=== PATIENT | female | born 1935 | race Caucasian/White ===

== ENCOUNTER → 2016-07-25 | Outpatient (CLI) | payer OTHER ==
[~2016-07-25] MED LIST: ADALAT CC30 MG; ALBU18 IN; CALC-255; DIAZ-104 OR; MULT-351; NOR5T PO
[2016-07-25 09:23] LABS: Urine RBC None Seen /hpf (0 - 4)
[2016-07-25 09:39] LABS: Basophils # (auto) 0 uL; Basophils % (auto) 0.4 % (0.0-2.0); Eosinophils # (auto) 0.1 uL; Eosinophils % (auto) 2.4 % (0.0-7.0); Hematocrit 44.1 % (36.0-46.0); Hemoglobin 13.7 g/dL (12.2-16.2); Lymphocytes # (auto) 1.9 uL; Lymphocytes % (auto) 37.4 % (10.0-50.0); Mean Corpuscular Hemoglobin 29.7 pg (28.0-32.0); Mean Corpuscular Hgb Conc. 31.2 g/dL (32.0-36.0); Mean Corpuscular Volume 95.3 fL (80.0-100.0); Mean Platelet Volume 11.2 fL (7.4-10.4); Monocytes # (auto) 0.4 uL; Monocytes % (auto) 8.4 % (0.0-12.0); Neutrophils # (auto) 2.6 uL; Neutrophils % (auto) 51.4 % (37.0-80.0); Platelet Count (auto) 168 10^3/uL (140-450); Red Cell Distribution Width 13.6 % (11.6-16.0); White Blood Cell 5.1 10^3/uL (4.4-10.8)
[2016-07-25 10:30] LABS: Urine Bilirubin Negative (Negative); Urine Blood Negative /uL (Negative); Urine Color Yellow (Yellow); Urine Glucose Normal (Normal); Urine Ketone Negative (Negative); Urine Nitrite Negative (Negative); Urine Squamous Epithelial Cell FEW /hpf (<5); Urine Urobilinogen Normal (Negative); Urine pH 5.5 (5.0-8.0)
[2016-07-25 10:35] LABS: Albumin 3.5 g/dL (3.4-5.0); BUN/Creatinine Ratio 31.8; Bilirubin, Total 0.4 mg/dL (0.2-1.0); Calcium 9.1 mg/dL (8.5-10.1); Potassium 4.4 mmol/L (3.5-5.1); Total Protein 7.1 g/dL (6.4-8.2)
== END | disposition home or self-care (01) ==
LOC: LAB 07:40
PROVIDERS: ATTEND Internal Medicine
DX: I10 Essential (primary) hypertension (principal); Z00.00 Encounter for general adult medical examination without abnormal findings; E55.9 Vitamin D deficiency, unspecified
CPT/HCPCS: 36415; 80053; 80061; 81001; 82306; 83036; 85025

== ENCOUNTER → 2016-08-15 | Outpatient (CLI) | payer OTHER | END | disposition home or self-care (01) | LOC: LAB 10:13 | PROVIDERS: ATTEND Internal Medicine | DX: Z79.01 Long term (current) use of anticoagulants (principal) | CPT/HCPCS: 82570; G0434 ==

== ENCOUNTER → 2016-10-27 | Outpatient (CLI) | payer OTHER | END | disposition home or self-care (01) | LOC: LAB 12:09 | PROVIDERS: ATTEND Anesthesiology Pain Medicine | DX: Z00.00 Encounter for general adult medical examination without abnormal findings (principal) ==

== ENCOUNTER → 2016-11-21 | Outpatient (CLI) | payer OTHER ==
[~2016-11-21] MED LIST changes: -ADALAT CC30 MG; +HYDR-4663 PO; +NIFE30TA87; -NOR5T PO
== END | disposition home or self-care (01) ==
LOC: LAB 12:34
PROVIDERS: ATTEND Anesthesiology Pain Medicine
DX: Z79.891 Long term (current) use of opiate analgesic (principal); F11.90 Opioid use, unspecified, uncomplicated
CPT/HCPCS: 80307

== ENCOUNTER 2017-03-25 08:07 | Emergency (ER) | payer OTHER ==
[~2017-03-25] VITALS: Ht 170.2 cm; Wt 63.5 kg
[~2017-03-25 08:07] MED LIST changes: -HYDR-4663 PO; +HYDR-4683 PO; +NIFE-16; -NIFE30TA87
[2017-03-25] MEDS ORDERED: SODIUM CHLORIDE 0.9% 1,000 ML IV ONE (08:42)
[2017-03-25] MEDS ORDERED: BACITRACIN TOP OINT 1 UD PKG TOP ONE (08:45)
[2017-03-25] MEDS ORDERED: MORPHINE SULF INJ 2 MG/ML SYRINGE 1ML IV ONE (09:15)
[2017-03-25] MEDS ORDERED: ONDANSETRON HCL 4 MG/2 ML VIAL IV ONE (09:15)
[2017-03-25 09:39] LABS: Basophils # (auto) 0 uL; Basophils % (auto) 0.5 % (0.0-2.0); Eosinophils # (auto) 0.1 uL; Eosinophils % (auto) 2.1 % (0.0-7.0); Hematocrit 40.1 % (36.0-46.0); Hemoglobin 13.5 g/dL (12.2-16.2); Lymphocytes # (auto) 1.2 uL; Lymphocytes % (auto) 18.4 % (10.0-50.0); Mean Corpuscular Hemoglobin 31.7 pg (28.0-32.0); Mean Corpuscular Hgb Conc. 33.7 g/dL (32.0-36.0); Mean Corpuscular Volume 94.3 fL (80.0-100.0); Mean Platelet Volume 9.7 fL (6.9-10.8); Monocytes # (auto) 0.4 uL; Monocytes % (auto) 6.7 % (0.0-12.0); Neutrophils # (auto) 4.8 uL; Neutrophils % (auto) 72.3 % (37.0-80.0); Platelet Count (auto) 197 10^3/uL (140-450); Red Cell Distribution Width 13.7 % (11.8-14.3); White Blood Cell 6.7 10^3/uL (4.4-10.8)
[2017-03-25 09:54] LABS: INR 1.03 (0.9-1.15); Partial Thromboplastin Time 29.8 sec (22.64-33.71); Prothrombin Time 11.2 sec (9.37-12.3)
[2017-03-25 09:58] LABS: BUN/Creatinine Ratio 24.2
[2017-03-25 10:00] LABS: Potassium 4.7 mmol/L (3.5-5.1)
[2017-03-25 11:27] VITALS: BP 126/64
== END 2017-03-25 12:34 | disposition home or self-care (01) ==
LOC: ER 08:07 → EDBD 08:07 → ER 12:34
DX: C76.0 Malignant neoplasm of head, face and neck (principal); R23.3 Spontaneous ecchymoses; I10 Essential (primary) hypertension; Z88.6 Allergy status to analgesic agent; Z88.1 Allergy status to other antibiotic agents; J44.9 Chronic obstructive pulmonary disease, unspecified; Z87.891 Personal history of nicotine dependence
CPT/HCPCS: 36415; 80048; 83735; 85025; 85610; 85730; 96361; 96374; 96375; 99285; J2270; J2405; J7030

== ENCOUNTER → 2017-08-09 | Outpatient (CLI) | payer OTHER ==
[2017-08-09 09:23] LABS: Basophils # (auto) 0 uL; Basophils % (auto) 0.6 % (0.0-2.0); Eosinophils # (auto) 0.1 uL; Eosinophils % (auto) 1.5 % (0.0-7.0); Hematocrit 42.1 % (36.0-46.0); Hemoglobin 14.2 g/dL (12.2-16.2); Lymphocytes # (auto) 1.5 uL; Lymphocytes % (auto) 29.1 % (10.0-50.0); Mean Corpuscular Hemoglobin 31.3 pg (28.0-32.0); Mean Corpuscular Hgb Conc. 33.7 g/dL (32.0-36.0); Mean Corpuscular Volume 92.9 fL (80.0-100.0); Monocytes # (auto) 0.3 uL; Monocytes % (auto) 6.7 % (0.0-12.0); Neutrophils # (auto) 3.2 uL; Neutrophils % (auto) 62.1 % (37.0-80.0); Platelet Count (auto) 209 10^3/uL (140-450); Red Blood Cells 4.53 10^6/uL (4.0-5.20); Red Cell Distribution Width 14.3 % (11.8-14.3); White Blood Cell 5.2 10^3/uL (4.4-10.8)
[2017-08-09 10:26] LABS: Albumin 3.5 g/dL (3.4-5.0); BUN/Creatinine Ratio 23.1; Bilirubin, Total 0.5 mg/dL (0.2-1.0); Calcium 9.3 mg/dL (8.5-10.1); Potassium 4.2 mmol/L (3.5-5.1); Total Protein 7.4 g/dL (6.4-8.2)
== END | disposition home or self-care (01) ==
LOC: LAB 08:44
PROVIDERS: ATTEND Physician Assistant
DX: I10 Essential (primary) hypertension (principal); J44.9 Chronic obstructive pulmonary disease, unspecified; G60.9 Hereditary and idiopathic neuropathy, unspecified; E78.4 Other hyperlipidemia
CPT/HCPCS: 36415; 80053; 80061; 85025

== ENCOUNTER 2018-09-20 06:13 | Day surgery (SDC) | payer OTHER ==
[2018-09-17 14:57] LABS: Urine WBC None Seen /hpf (0 - 5)
[2018-09-17 15:18] LABS: Basophils # (auto) 0.1 uL; Basophils % (auto) 1.5 % (0.0-2.0); Eosinophils # (auto) 0.6 uL; Eosinophils % (auto) 9.9 % (0.0-7.0); Hematocrit 41.4 % (36.0-46.0); Hemoglobin 13.6 g/dL (12.2-16.2); Lymphocytes # (auto) 1.6 uL; Lymphocytes % (auto) 28.3 % (10.0-50.0); Mean Corpuscular Hemoglobin 30.5 pg (28.0-32.0); Mean Corpuscular Hgb Conc. 32.8 g/dL (32.0-36.0); Mean Corpuscular Volume 92.7 fL (80.0-100.0); Monocytes # (auto) 0.6 uL; Monocytes % (auto) 10.7 % (0.0-12.0); Neutrophils # (auto) 2.9 uL; Neutrophils % (auto) 49.6 % (37.0-80.0); Nucleated Red Blood Cells % 0.1 %; Platelet Count (auto) 190 10^3/uL (140-450); Red Blood Cells 4.47 10^6/uL (4.0-5.20); Red Cell Distribution Width 14.7 % (11.8-14.3); White Blood Cell 5.8 10^3/uL (4.4-10.8)
[2018-09-17 15:23] LABS: Potassium 4.5 mmol/L (3.5-5.1)
[2018-09-17 15:30] LABS: Albumin 3.4 g/dL (3.4-5.0); BUN/Creatinine Ratio 19.4; Bilirubin, Total 0.3 mg/dL (0.2-1.0); Calcium 9.4 mg/dL (8.5-10.1); Total Protein 8.5 g/dL (6.4-8.2)
[2018-09-17 15:36] LABS: INR 0.96 (0.9-1.15); Partial Thromboplastin Time 24.7 sec (23.78-33.04); Prothrombin Time 10.3 sec (9.27-12.13); Urine Bacteria NONE SEEN /hpf (None Seen); Urine Blood Negative /uL (Negative); Urine Specific Gravity 1.008 (1.001-1.035)
[~2018-09-20] VITALS: Ht 170.2 cm; Wt 66.2 kg
[~2018-09-20 06:13] MED LIST changes: -ALBU18 IN; -CALC-255; +DIA5T PO; +GABA100C9 PO; -HYDR-4683 PO; +LISI-646 PO; -MULT-351; -NIFE-16
[2018-09-20] MEDS ORDERED: ceFAZolin 1GM/50ML 0 ML IV ONE (07:09)
[2018-09-20] MEDS ORDERED: CLINDAMYCIN 600MG IV 50 ML IV ONE (07:12)
[2018-09-20] MEDS ORDERED: fentaNYL CITRATE 100 MCG/2 ML VL ONE ×2 (07:23→08:51)
[2018-09-20] MEDS ORDERED: MIDAZOLAM HCL 1MG/1ML-2 ML VIAL ONE ×2 (07:23→08:52)
[2018-09-20] MEDS ORDERED: PROPOFOL 10 MG/ML 20 ML IV ONE (07:24)
[2018-09-20] MEDS ORDERED: SUCCINYLCHOLINE CHLORIDE 20 MG/ML 10ML VIAL IV ONE (07:25)
[2018-09-20] MEDS ORDERED: ePHEDrine SULFATE 50 MG/ML AMP IV PRN (08:45)
[2018-09-20] MEDS ORDERED: ONDANSETRON HCL 4 MG/2 ML VIAL IV ONE (08:45)
[2018-09-20] MEDS ORDERED: hydrALAZINE HCL 20 MG/ML VL IV PRN (08:45)
[2018-09-20] MEDS ORDERED: ANGIOMAX 250 MG VIAL IV ONE (08:51)
[2018-09-20] MEDS ORDERED: SODIUM CHL 0.9% 0 ML ONE (08:52)
[2018-09-20] MEDS ORDERED: fentaNYL CITRATE 100 MCG/2 ML VL IV ONE (09:00)
[2018-09-20 09:20] VITALS: BP 126/66
== END 2018-09-20 08:40 | disposition home or self-care (01) ==
LOC: SUR 06:13
PROVIDERS: ATTEND Anesthesiology Pain Medicine
DX: S32.010A Wedge compression fracture of first lumbar vertebra, initial encounter for closed fracture (principal); M54.5 Low back pain; J43.9 Emphysema, unspecified; I26.99 Other pulmonary embolism without acute cor pulmonale; F32.9 Major depressive disorder, single episode, unspecified; F41.9 Anxiety disorder, unspecified; J98.8 Other specified respiratory disorders; Z88.1 Allergy status to other antibiotic agents; Z88.8 Allergy status to other drugs, medicaments and biological substances; X58.XXXA Exposure to other specified factors, initial encounter; Y93.89 Activity, other specified; Y92.89 Other specified places as the place of occurrence of the external cause; Y99.8 Other external cause status
CPT/HCPCS: 22514; 36415; 72100; 76000; 80053; 81001; 85025; 85610; 85730; J0330; J2250; J2704; J3010; J3490; J7030; A4565; J0690

== ENCOUNTER → 2018-10-31 | Outpatient (CLI) | payer OTHER ==
[2018-10-31 09:48] LABS: Basophils # (auto) 0 uL; Basophils % (auto) 0.4 % (0.0-2.0); Eosinophils # (auto) 0.1 uL; Eosinophils % (auto) 2.6 % (0.0-7.0); Hematocrit 41.7 % (36.0-46.0); Lymphocytes # (auto) 1.3 uL; Lymphocytes % (auto) 26.2 % (10.0-50.0); Mean Corpuscular Hemoglobin 30.7 pg (28.0-32.0); Mean Corpuscular Hgb Conc. 33.6 g/dL (32.0-36.0); Mean Corpuscular Volume 91.5 fL (80.0-100.0); Monocytes # (auto) 0.3 uL; Neutrophils # (auto) 3.3 uL; Neutrophils % (auto) 64.8 % (37.0-80.0); Nucleated Red Blood Cells % 0.1 %; Platelet Count (auto) 184 10^3/uL (140-450); Red Blood Cells 4.56 10^6/uL (4.0-5.20); Red Cell Distribution Width 14.3 % (11.8-14.3); White Blood Cell 5.1 10^3/uL (4.4-10.8)
[2018-10-31 09:53] LABS: Urine Bacteria NONE SEEN /hpf (None Seen); Urine Blood Negative /uL (Negative); Urine Specific Gravity 1.016 (1.001-1.035); Urine WBC <1 /hpf (0 - 5)
[2018-10-31 10:15] LABS: Albumin 3.4 g/dL (3.4-5.0); Potassium 4.6 mmol/L (3.5-5.1)
[2018-10-31 10:23] LABS: BUN/Creatinine Ratio 27.2; Bilirubin, Total 0.5 mg/dL (0.2-1.0); Calcium 9.4 mg/dL (8.5-10.1); Total Protein 7.8 g/dL (6.4-8.2)
== END | disposition home or self-care (01) ==
LOC: LAB 09:09
PROVIDERS: ATTEND Physician Assistant
DX: J44.9 Chronic obstructive pulmonary disease, unspecified (principal); I10 Essential (primary) hypertension; I73.9 Peripheral vascular disease, unspecified; E78.49 Other hyperlipidemia; R81 Glycosuria
CPT/HCPCS: 36415; 80053; 80061; 81001; 83036; 85025

== ENCOUNTER → 2019-06-03 | Emergency (ER) | payer OTHER ==
[~2019-06-03] VITALS: Ht 170.2 cm; Wt 68.5 kg
[~2019-06-03] MED LIST changes: -DIAZ-104 OR; +DIAZ5TAB OR
[2019-06-03 15:28] LABS: Basophils # (auto) 0 uL; Basophils % (auto) 0.4 % (0.0-2.0); Eosinophils # (auto) 0.1 uL; Eosinophils % (auto) 2.1 % (0.0-7.0); Hematocrit 40.2 % (36.0-46.0); Hemoglobin 13.6 g/dL (12.2-16.2); Lymphocytes # (auto) 1.8 uL; Lymphocytes % (auto) 27.7 % (10.0-50.0); Mean Corpuscular Hemoglobin 31.3 pg (28.0-32.0); Mean Corpuscular Hgb Conc. 33.9 g/dL (32.0-36.0); Mean Corpuscular Volume 92.3 fL (80.0-100.0); Monocytes # (auto) 0.4 uL; Monocytes % (auto) 6.8 % (0.0-12.0); Neutrophils # (auto) 4.1 uL; Nucleated Red Blood Cells % 0.1 %; Platelet Count (auto) 184 10^3/uL (140-450); Red Blood Cells 4.35 10^6/uL (4.0-5.20); Red Cell Distribution Width 13.5 % (11.8-14.3); White Blood Cell 6.4 10^3/uL (4.4-10.8)
[2019-06-03 15:50] LABS: INR 1.06 (0.9-1.15); Partial Thromboplastin Time 31.6 sec (23.64-32.05)
[2019-06-03 16:50] LABS: Albumin 3.5 g/dL (3.4-5.0); Calcium 9.5 mg/dL (8.5-10.1); Magnesium 2.2 mg/dL (1.6-2.6); Potassium 4.6 mmol/L (3.5-5.1)
[2019-06-03 16:55] LABS: BUN/Creatinine Ratio 33.8; Bilirubin, Total 0.5 mg/dL (0.2-1.0); Total Protein 7.6 g/dL (6.4-8.2)
[2019-06-03 17:06] VITALS: BP 122/68
== END | disposition home or self-care (01) ==
LOC: ER 12:51
DX: L03.115 Cellulitis of right lower limb (principal); R60.0 Localized edema; Z88.2 Allergy status to sulfonamides; Z88.8 Allergy status to other drugs, medicaments and biological substances
CPT/HCPCS: 36415; 73630; 80053; 81002; 83735; 83880; 85025; 85610; 85730; 87040; 93005; 93971

== ENCOUNTER 2019-08-14 17:02 | Inpatient (IN) | payer OTHER ==
[~2019-08-14] VITALS: Ht 170.2 cm; Wt 73.6 kg
[2019-08-14 20:30] LABS: Basophils # (auto) 0.1 10 ^3/uL (0-0.2); Basophils % (auto) 0.9 % (0.0-2.0); Eosinophils # (auto) 0.1 10 ^3/uL (0-0.8); Eosinophils % (auto) 1.8 % (0.0-7.0); Hematocrit 39.8 % (36.0-46.0); Mean Corpuscular Hgb Conc. 32.6 g/dL (32.0-36.0); Mean Corpuscular Volume 91.9 fL (80.0-100.0); Monocytes # (auto) 0.6 10 ^3/uL (0-1.3); Monocytes % (auto) 7.4 % (0.0-12.0); Neutrophils # (auto) 5.4 10 ^3/uL (1.6-8.6); Neutrophils % (auto) 65.9 % (37.0-80.0); Platelet Count (auto) 248 10^3/uL (140-450); Red Blood Cells 4.33 10^6/uL (4.0-5.20); Red Cell Distribution Width 13.8 % (11.8-14.3); White Blood Cell 8.2 10^3/uL (4.4-10.8)
[2019-08-14 20:48] LABS: INR 1.07 (0.9-1.15); Partial Thromboplastin Time 33.1 sec (23.64-32.05)
[2019-08-14 21:05] LABS: Albumin 3.2 g/dL (3.4-5.0); Calcium 9.2 mg/dL (8.5-10.1); Potassium 4.9 mmol/L (3.5-5.1)
[2019-08-14 21:08] LABS: Bilirubin, Total 0.3 mg/dL (0.2-1.0); Total Protein 7.8 g/dL (6.4-8.2)
[2019-08-14] MEDS ORDERED: CLINDAMYCIN 600MG IV 50 ML IV ONE (22:00)
[2019-08-15] MEDS ORDERED: ACETAMINOPHEN 325 MG TAB PO PRN (00:30)
[2019-08-15 00:36] LABS: Urine Bacteria FEW /hpf (None Seen); Urine Blood Negative /uL (Negative); Urine WBC 14 /hpf (0 - 5)
[2019-08-15] MEDS ORDERED: HYDROcodone-ACET 10/325MG TAB PO ONE (00:45)
[2019-08-15] MEDS: HYDROcodone-ACET 5/325MG TAB PO PRN ×2 (04:17→10:41)
[2019-08-15 05:30] VITALS: BP 117/61
[2019-08-15 05:38] VITALS: BP 117/61
[2019-08-15] MEDS: CLINDAMYCIN 600MG IV 50 ML IV SCH ×3 (07:04→21:53)
--- NOTE | 2019-08-15 07:35 | NUR ---
Opening Shift Note Assumed care of patient, awake and alert. No S/S of distress/SOB or pain. Instructed on POC and to call for assist PRN, will continue to monitor for changes Q1hr and PRN.
--- NOTE | 2019-08-15 07:40 | NUR ---
Rweport given to velvet
[2019-08-15 09:11] VITALS: BP 99/57
[2019-08-15] MEDS: FAMOTIDINE 20 MG TAB PO SCH ×2 (10:00→21:53)
[2019-08-15] MEDS: FUROSEMIDE 40 MG TAB PO SCH (10:39)
[2019-08-15] MEDS: levoFLOXacin 500MG 100 ML IV SCH (10:39)
[2019-08-15] MEDS: LISINOPRIL 20 MG TAB PO SCH (10:40)
[2019-08-15] MEDS: ENOXAPARIN SOD 40 MG/0.4 ML SYRINGE SC SCH (10:40)
[2019-08-15 11:16] LABS: Basophils # (auto) 0 10 ^3/uL (0-0.2); Basophils % (auto) 0.6 % (0.0-2.0); Eosinophils # (auto) 0.2 10 ^3/uL (0-0.8); Eosinophils % (auto) 3.9 % (0.0-7.0); Hematocrit 36.2 % (36.0-46.0); Hemoglobin 12.1 g/dL (12.2-16.2); Lymphocytes # (auto) 1.3 10 ^3/uL (0.4-5.4); Lymphocytes % (auto) 28.7 % (10.0-50.0); Mean Corpuscular Hemoglobin 30.6 pg (28.0-32.0); Mean Corpuscular Hgb Conc. 33.3 g/dL (32.0-36.0); Mean Corpuscular Volume 91.7 fL (80.0-100.0); Monocytes # (auto) 0.5 10 ^3/uL (0-1.3); Monocytes % (auto) 9.9 % (0.0-12.0); Neutrophils # (auto) 2.6 10 ^3/uL (1.6-8.6); Neutrophils % (auto) 56.9 % (37.0-80.0); Platelet Count (auto) 214 10^3/uL (140-450); Red Blood Cells 3.95 10^6/uL (4.0-5.20); Red Cell Distribution Width 14.2 % (11.8-14.3); White Blood Cell 4.6 10^3/uL (4.4-10.8)
[2019-08-15 11:29] LABS: Albumin 2.7 g/dL (3.4-5.0); Magnesium 2.7 mg/dL (1.6-2.6); Potassium 4.8 mmol/L (3.5-5.1)
[2019-08-15 11:33] LABS: Bilirubin, Total 0.3 mg/dL (0.2-1.0); Total Protein 6.6 g/dL (6.4-8.2)
[2019-08-15 11:39] LABS: Folate (Folic Acid) 19.59 ng/mL (5.38-24)
--- NOTE | 2019-08-15 12:36 | NUR ---
WOUND CARE NOTE: Wound care in to see patient per wound care request regarding "Rt foot ulcer" that are noted present on admission. Bedside nurse took photograph of patient's wound/skin issue upon admission for reference. Patient is 84 years old female with admitting diagnosis of Rt Leg Cellulitis. Patient with history of Anxiety, COPD,Depression, GERD, htn,and PE. Patient is resting in bed in Rm. 249A. Patient is awake, alert and oriented. Patient is in no stated pain at this time. She's able to turn and reposition self with minimal assistance. Her Wilfredo score is 15. Skin/wound assessment done with the assistance of patient's nurse, JACKELINE Littlejohn. Patient's RLE noted with edema,erythema, intact scabs, crusts with dry skin. She will benefit in BID cleaning and application of Hydraguard cream to RLE dry skin to help moisturize skin. Her Rt heel has 4x6cm yellow calloused area with 1.8x1.2x0.3 cm open ulceration. Wound bed is red with yellow hyperkeratotic tika wound, minimal serous drainage noted, no odor noted. Patient reported that she has had the yellow hyperkeratotic area to Rt heel and just opened up and noted ulceration about few days ago. Cleansed patient's Rt heel wound with NS, took specimen for wound culture and sent to lab for processing. Applied Thera honey gel to open wound bed area, covered with Opti foam, wrapped with Kerlix and secured with tape. No pressure injury noted. Patient tolerated well, repositioned for comfort on her back with head of bed elevated. JACKELINE Littlejohn at bedside. RECOMMENDATION: Nursing to continue with BID/PRN cleaning and application of Hydraguard cream to RLE dry skin and sacral,buttocks; EOD/PRN Dressing change to Rt heel wound per MD order, Dietary consult for wound,Podiatry consult, elevate edematous extremity on pillow,frequent turning and repositioning schedule as condition permits, redistribute pressure points with pillows, continue monitoring by wound care while patient is hospitalized. Addendum: 08/15/19 at 1737 by Pamela Cortez RN Amended: Links added.
[2019-08-15] MEDS ORDERED: FURO1TAB32 PO (12:44)
[2019-08-15] MEDS ORDERED: PREG100C PO (12:44)
[2019-08-15 13:00] VITALS: BP 105/59
[2019-08-15 16:25] VITALS: BP 96/56
--- NOTE | 2019-08-15 19:50 | NUR ---
Opening Shift Note Assumed care of patient, awake and alert. No S/S of distress/SOB or pain. Instructed on POC and to call for assist PRN. Bed in lowest locked position, call light within reach, side rails up x2, fall precautions in place. Will continue to monitor for changes Q1hr and PRN.
[2019-08-15] MEDS: ONDANSETRON HCL 4 MG/2 ML VIAL IV PRN (21:52)
[2019-08-15 22:29] VITALS: BP 105/54
[2019-08-15] MEDS: TEMAZEPAM 15 MG CAP PO PRN (23:25)
[2019-08-16 05:30] VITALS: BP 123/61
[2019-08-16] MEDS: CLINDAMYCIN 600MG IV 50 ML IV SCH ×3 (06:06→21:59)
[2019-08-16 06:42] LABS: Basophils # (auto) 0 10 ^3/uL (0-0.2); Basophils % (auto) 0.5 % (0.0-2.0); Eosinophils # (auto) 0.2 10 ^3/uL (0-0.8); Eosinophils % (auto) 2.8 % (0.0-7.0); Hemoglobin 12.8 g/dL (12.2-16.2); Lymphocytes # (auto) 1.1 10 ^3/uL (0.4-5.4); Lymphocytes % (auto) 18.6 % (10.0-50.0); Mean Corpuscular Hgb Conc. 33.8 g/dL (32.0-36.0); Mean Corpuscular Volume 91.6 fL (80.0-100.0); Monocytes # (auto) 0.4 10 ^3/uL (0-1.3); Monocytes % (auto) 6.8 % (0.0-12.0); Neutrophils # (auto) 4.2 10 ^3/uL (1.6-8.6); Neutrophils % (auto) 71.3 % (37.0-80.0); Nucleated Red Blood Cells % 0.1 %; Platelet Count (auto) 236 10^3/uL (140-450); Red Blood Cells 4.14 10^6/uL (4.0-5.20); Red Cell Distribution Width 13.8 % (11.8-14.3); White Blood Cell 5.8 10^3/uL (4.4-10.8)
[2019-08-16 07:03] LABS: Potassium 4.6 mmol/L (3.5-5.1)
[2019-08-16 07:09] LABS: BUN/Creatinine Ratio 27.2
--- NOTE | 2019-08-16 07:29 | NUR ---
Opening Shift Note Assumed care of patient, awake and alert. No S/S of distress/SOB or pain. Dressing to rt foot cdi. Instructed on POC and to call for assist PRN, will continue to monitor for changes Q1hr and PRN.
[2019-08-16 09:00] VITALS: BP 122/58
[2019-08-16] MEDS: levoFLOXacin 500MG 100 ML IV SCH (09:58)
[2019-08-16] MEDS: FLORASTOR (S. BOULARDII) 250 MG CAP PO SCH (09:59)
[2019-08-16] MEDS: FUROSEMIDE 40 MG TAB PO SCH (09:59)
[2019-08-16] MEDS: FAMOTIDINE 20 MG TAB PO SCH ×2 (09:59→21:59)
[2019-08-16] MEDS: LISINOPRIL 20 MG TAB PO SCH (10:00)
[2019-08-16] MEDS: ENOXAPARIN SOD 40 MG/0.4 ML SYRINGE SC SCH (10:00)
--- NOTE | 2019-08-16 11:41 | NUR ---
assessment Patient is a 84 year old female who is alert and oriented. Prior to admission patient lived home with family and functioned with assistance. Per patient she will return home to her prior living arrangements post discharge and family will transport her home. Patient informed me she has a fww for home use. Patient uses [facility] for her PCP. Patient informed me she was getting out of a taxi van and hit her leg. Patient has an open wound on her leg. Patient may need home health wound care on discharge. I informed patient she has a right to speak to a social and political studies professor regarding all care. I informed patient she has a right to participate in any and all discharge planning. Patient does not have a POA and advanced directive. I have offered patient information on POA and advanced directives. I informed the patient the advantages and benefits of having an Advanced Directive. Patient verbalized understanding and agreed to discharge plan. Addendum: 08/16/19 at 1147 by Arabella ARREOLA Amended: Links added. Addendum: 08/16/19 at 1157 by Arabella ARREOLA amend wrong patient info regarding hitting leg on taxi door. Patient does have an open wound and may need wound care on discharge.
[2019-08-16 13:00] VITALS: BP 107/61
[2019-08-16] MEDS: HYDROcodone-ACET 5/325MG TAB PO PRN ×2 (13:30→22:00)
--- NOTE | 2019-08-16 14:48 | NUR ---
NUTRITION ASSESSMENT NOTES Please refer to link notes of nutrition screen form filed under the intervention section of the plan of care for further details. Est. Energy Needs: 2123-1767 kcal (25-30 kcal/kg BW). Est. Protein Needs: 89-112 gms/day (1.2-1.5 gms/kg BW). Will continue to monitor pertinent labs and reassess nutrient need prn Addendum: 08/16/19 at [address] Amended: Links added.
[2019-08-16 17:00] VITALS: BP 90/54
--- NOTE | 2019-08-16 19:30 | NUR ---
Opening Shift Note Assumed care of patient, awake and alert. No S/S of distress/SOB or pain. Instructed on POC and to call for assist PRN. BED IN LOWEST LOCKED POSITION, CALL LIGHT WITHIN REACH, SIDE RAILS UP X2, will continue to monitor for changes Q1hr and PRN.
[2019-08-16 23:03] VITALS: BP 96/46
--- NOTE | 2019-08-16 23:10 | NUR ---
IV insertion IV access obtained, via clean sterile technique by inserting 20 gauge catheter at RT HAND after 1 attempt. IV secured properly. No trauma to site. Patient tolerated procedure well. PREVIOUS IV DC'D, CATHETER INTACT, PRESSURE DRESSING APPLIED, PT TOLERATED WELL.
[2019-08-17] MEDS: TEMAZEPAM 15 MG CAP PO PRN (00:32)
--- NOTE | 2019-08-17 04:17 | NUR ---
RECEIVED REPORT. ASSUMED CARE OF PATIENT.
[2019-08-17 05:30] VITALS: BP 120/64
[2019-08-17] MEDS: CLINDAMYCIN 600MG IV 50 ML IV SCH ×3 (05:30→21:37)
[2019-08-17] MEDS: ONDANSETRON HCL 4 MG/2 ML VIAL IV PRN (05:37)
[2019-08-17 09:28] VITALS: BP 102/58
[2019-08-17] MEDS: FLORASTOR (S. BOULARDII) 250 MG CAP PO SCH (09:51)
[2019-08-17] MEDS: FUROSEMIDE 40 MG TAB PO SCH (09:51)
[2019-08-17] MEDS: LISINOPRIL 20 MG TAB PO SCH (09:52)
[2019-08-17] MEDS: FAMOTIDINE 20 MG TAB PO SCH ×2 (09:53→21:38)
[2019-08-17] MEDS: levoFLOXacin 500MG 100 ML IV SCH (09:54)
[2019-08-17] MEDS: ENOXAPARIN SOD 40 MG/0.4 ML SYRINGE SC SCH (09:55)
[2019-08-17 13:28] VITALS: BP 108/59
[2019-08-17] MEDS: SENNA 8.6 MG TAB PO SCH ×2 (15:01→21:38)
--- NOTE | 2019-08-17 15:09 | NUR ---
ASSUMED CARE OF PATIENT. PT RESTING IN BED, NO DISTRESS NOTED. PATIENT INSTRUCTED TO USE CALL LIGHT PRN, RIGHT FOOT WRAPPED IN ROMAN BANDAGE AND ELEVATED ON PILLOW. CAP REFILL IN BILATERAL FEET LESS THAN 3 SECONDS. PT REPORTS NO PAIN AT THIS TIME, WILL CONTINUE TO MONITOR.
[2019-08-17 17:00] VITALS: BP 99/47
--- NOTE | 2019-08-17 17:12 | NUR ---
CHEST PAIN PT REPORTS PAIN 5/10 IN SHOULDER, "LIKE A CRAMP," RADIATING TO CHEST WITH, "A LITTLE PRESSURE." PT REPORTS SHE IS A LITTLE SOB. VITALS TAKEN: BP 132/75, HR 68, 02 88% ON RA, PT REPORTS SHE HAS COPD, RR 18, T 99.2. SHE REPORTS, "IT MAY JUST BE GAS." EKG DONE, READS SR 70 BPM. CALLED AND LEFT MESSAGE FOR DR BERNARD, NOTIFYNErik ROTH OF CHEST PAIN, VITALS AND EKG RESULTS. AWAITING CALL BACK.
--- NOTE | 2019-08-17 17:24 | NUR ---
CALLED ADMITTING IN E.R., GOT PATIENT NEW ID BAND, PT PLACED ON 2L NC. WILL CONTINUE TO MONITOR. PT RESTING IN BED WATCHING TV. Addendum: 08/17/19 at 1744 by ISMAEL BROOKS RN PT 02 97% ON 2L NC.
--- NOTE | 2019-08-17 17:28 | NUR ---
DR BERNARD CALLED BACK, NEW ORDERS FOR STAT TROPONIN AND AGAIN IN FOUR HOURS.
--- NOTE | 2019-08-17 19:45 | NUR ---
Opening Shift Note Assumed care of patient, awake and alert. No S/S of distress/SOB or pain. Fall and safety precautions in place. Call light within reach and able to use. Instructed on POC and to call for assist PRN, patient verbalized understanding and in agreement. Will continue to monitor for changes Q1hr and PRN.
[2019-08-17] MEDS: PREGABALIN 25 MG CAP PO SCH (21:38)
[2019-08-17] MEDS: PREGABALIN CAPSULE 75 MG CAP PO SCH (21:38)
[2019-08-17] MEDS: HYDROcodone-ACET 5/325MG TAB PO PRN (21:39)
--- NOTE | 2019-08-17 21:39 | NUR ---
PAIN ASSESSMENT PATIENT REPORTS 10/10 PAIN TO LEFT SHOULDER, DESCRIBED ACHING AND WORSE WITH MOVEMENT. MD IS AWARE OF PAIN. PATIENT SPECIFICALLY REQUESTS NORCO FOR PAIN (SEE EMAR FOR ADMINISTRATION). PATIENT REPOSITIONED FOR COMFORT. WILL CONTINUE TO MONITOR.
[2019-08-17 22:00] VITALS: BP 104/61
--- NOTE | 2019-08-17 22:39 | NUR ---
PAIN REASSESSMENT PATIENT STATES SHE IS NO LONGER IN PAIN, RATING 0/10 USING ADULT SCALE. WILL CONTINUE TO MONITOR.
[2019-08-18] VITALS (7 sets, daily range): BP systolic 107–129; BP diastolic 46–70
[2019-08-18] MEDS: diazePAM 5 MG TAB PO PRN (00:22)
--- NOTE | 2019-08-18 00:22 | NUR ---
PRN VALIUM PATIENT REQUESTS PRN VALIUM TO HELP HER "GET SOME REST". SEE EMAR FOR ADMINISTRATION AT THIS TIME. WILL CONTINUE TO MONITOR.
--- NOTE | 2019-08-18 03:39 | NUR ---
PRN TYLENOL PATIENT SPECIFICALLY REQUESTS TYLENOL FOR HEADACHE PAIN 7/10 USING ADULT SCALE. SEE EMAR FOR ADMINISTRATION. WILL CONTINUE TO MONITOR.
[2019-08-18] MEDS: CLINDAMYCIN 600MG IV 50 ML IV SCH ×3 (05:32→22:28)
[2019-08-18 06:58] LABS: Albumin 2.5 g/dL (3.4-5.0); BUN/Creatinine Ratio 26.2; Calcium 8.5 mg/dL (8.5-10.1); Magnesium 2.1 mg/dL (1.6-2.6)
[2019-08-18 07:00] LABS: Bilirubin, Total 0.3 mg/dL (0.2-1.0); Total Protein 6.4 g/dL (6.4-8.2)
[2019-08-18] MEDS ORDERED: POLYETHYLENE GLYCOL 17 GM PWDR PO ONE ×2 (10:15)
[2019-08-18] MEDS: levoFLOXacin 500MG 100 ML IV SCH (11:23)
[2019-08-18] MEDS: FLORASTOR (S. BOULARDII) 250 MG CAP PO SCH (11:23)
[2019-08-18] MEDS: PREGABALIN CAPSULE 75 MG CAP PO SCH ×2 (11:24→22:28)
[2019-08-18] MEDS: PREGABALIN 25 MG CAP PO SCH ×2 (11:24→22:28)
[2019-08-18] MEDS: ENOXAPARIN SOD 40 MG/0.4 ML SYRINGE SC SCH (11:25)
[2019-08-18] MEDS: SENNA 8.6 MG TAB PO SCH ×2 (11:25→22:35)
[2019-08-18] MEDS: FAMOTIDINE 20 MG TAB PO SCH ×2 (11:25→22:28)
--- NOTE | 2019-08-18 19:50 | NUR ---
Opening Shift Note Assumed care of patient, awake and alert. No S/S of distress/SOB. Instructed on POC and to call for assist PRN, patient verbalized understanding and in agreement. Fall and safety precautions in place. Call light within reach and able to use. Will continue to monitor for changes Q1hr and PRN.
--- NOTE | 2019-08-18 21:00 | NUR ---
dressing change completed, patient tolerated well. will continue to monitor.
--- NOTE | 2019-08-18 22:00 | NUR ---
Patient states that she does not want to take any prn medication for pain. Patient repositioned for comfort and offered alternative options for pain relief. Patient repositioned in bed and pillows repositioned under head. Patient verbalized understanding and is aware of medication and options for pain relief and stated she will call if she needs anything for pain. Will continue to monitor.
[2019-08-19] MEDS: diazePAM 5 MG TAB PO PRN (00:36)
--- NOTE | 2019-08-19 00:36 | NUR ---
Patient requests prn Patient requests valium (see emar for administration). Risks/side effects discussed. Patient verbalized understanding and in agreement. Will continue to monitor.
[2019-08-19 05:00] VITALS: BP 118/60
[2019-08-19] MEDS: CLINDAMYCIN 600MG IV 50 ML IV SCH ×3 (05:48→23:02)
[2019-08-19 06:41] LABS: Potassium 4.7 mmol/L (3.5-5.1)
[2019-08-19 06:45] LABS: BUN/Creatinine Ratio 29.8; Magnesium 2.2 mg/dL (1.6-2.6)
[2019-08-19 08:00] VITALS: BP 105/62
[2019-08-19 09:00] VITALS: BP 105/62
[2019-08-19] MEDS: PREGABALIN CAPSULE 75 MG CAP PO SCH ×2 (10:25→23:01)
[2019-08-19] MEDS: PREGABALIN 25 MG CAP PO SCH ×2 (10:26→23:01)
[2019-08-19] MEDS: SENNA 8.6 MG TAB PO SCH ×2 (10:27→23:02)
[2019-08-19] MEDS: FAMOTIDINE 20 MG TAB PO SCH ×2 (10:28→23:01)
[2019-08-19] MEDS: FLORASTOR (S. BOULARDII) 250 MG CAP PO SCH (10:28)
[2019-08-19] MEDS: levoFLOXacin 500MG 100 ML IV SCH (10:29)
[2019-08-19] MEDS: ENOXAPARIN SOD 40 MG/0.4 ML SYRINGE SC SCH (10:29)
[2019-08-19 13:00] VITALS: BP 111/64
--- NOTE | 2019-08-19 14:59 | NUR ---
SS consult for home health for wound care therapy. Contacted [facility] contracted provider, and faxed clinical information including tracking number. Informed Saira that pt would be discharged on tomorrow and home health would need to f/u post discharge. Contacted [facility] managed care department and notified of referral for home health. No other discharge needs. Addendum: 08/19/19 at 1513 by RAY JAMES SS Amended: Links added.
[2019-08-19 17:00] VITALS: BP 100/59
--- NOTE | 2019-08-19 19:30 | NUR ---
Opening Shift Note Assumed care of patient, awake and alert x4. Patient denies pain or shortness of breath at this time. Instructed on plan of care and to call for assistance as needed, patient verbalized understanding. Bed is locked in lowest position, side rails x 2 are up, call light is within reach, and bed alarm is on.
[2019-08-19 22:00] VITALS: BP 117/69
[2019-08-20] MEDS: diazePAM 5 MG TAB PO PRN (00:34)
[2019-08-20 05:00] VITALS: BP 123/79
--- NOTE | 2019-08-20 05:00 | NUR ---
Wound Care Right heel cleansed with wound cleanser, patted dry, therahoney and optifoam applied to right heel. Right heel wrapped with kerlix. Right leg cleansed with wound cleanser, patted dry with clean gauze, and hydrogaurd was applied to right leg. Wound care performed to right heel/leg as ordered by MD and recommended by wound care nurse. Patient tolerated well. No signs/symptoms of distress noted at this time. Patient is laying in bed with even and unlabored respirations. Bed is locked in lowest position, side rails x 2 are up, call light is within reach.
--- NOTE | 2019-08-20 05:34 | NUR ---
Patient Refusing IV Insertion Patient refusing IV insertion. IV noted to be leaking. This RN educated the patient on the importance of having a patent IV. Patient states she was told she might be going home today and does not want to be poked again. This RN reinforced IV with new tegaderm. Patient tolerated well.
[2019-08-20] MEDS: CLINDAMYCIN 600MG IV 50 ML IV SCH ×2 (06:03→14:48)
--- NOTE | 2019-08-20 07:20 | NUR ---
Opening Shift Note Assumed care of patient, awake and alert x4. no s/s distress or SOB noted, denies pain at this time. Instructed on plan of care and to call for assistance as needed, patient verbalized understanding. Bed is locked in lowest position, side rails x 2 are up, call light is within reach, and bed alarm is on.
[2019-08-20 09:00] VITALS: BP 108/69
[2019-08-20] MEDS: PREGABALIN 25 MG CAP PO SCH (10:45)
[2019-08-20] MEDS: FLORASTOR (S. BOULARDII) 250 MG CAP PO SCH (10:46)
[2019-08-20] MEDS: PREGABALIN CAPSULE 75 MG CAP PO SCH (10:46)
[2019-08-20] MEDS: levoFLOXacin 500MG 100 ML IV SCH (10:47)
[2019-08-20] MEDS: FAMOTIDINE 20 MG TAB PO SCH (10:47)
[2019-08-20] MEDS: ENOXAPARIN SOD 40 MG/0.4 ML SYRINGE SC SCH (10:47)
[2019-08-20] MEDS: SENNA 8.6 MG TAB PO SCH (10:49)
[2019-08-20 13:00] VITALS: BP 112/61
[2019-08-20 16:45] VITALS: BP 102/58
[2019-08-20 17:00] VITALS: BP 113/72
--- NOTE | 2019-08-20 19:20 | NUR ---
PATIENT DISCHARGE HOME WITH COPIES OF DISCHARGE SUMMARY AND FOLLOW-UP APPOINTMENT. PATIENT ALERT AND ORIENTED X4. VERBALIZED UNDERSTANDING OF DISCHARGE INSTRUCTION. IV DISCONTINUED. NO S/S DISTRESS NOTED.
== END 2019-08-20 19:20 | disposition home health service (06) | DRG 602 ==
LOC: ER 17:02 → OVERFLOW 17:03 → EAST 08-15 03:00
PROVIDERS: ADMIT Nurse Practitioner; ATTEND Internal Medicine
DX: L03.115 Cellulitis of right lower limb (principal); N17.0 Acute kidney failure with tubular necrosis; G62.9 Polyneuropathy, unspecified; I10 Essential (primary) hypertension; L97.519 Non-pressure chronic ulcer of other part of right foot with unspecified severity; E11.621 Type 2 diabetes mellitus with foot ulcer; F41.9 Anxiety disorder, unspecified; F32.9 Major depressive disorder, single episode, unspecified; K21.9 Gastro-esophageal reflux disease without esophagitis; I87.2 Venous insufficiency (chronic) (peripheral); J44.9 Chronic obstructive pulmonary disease, unspecified; Z88.6 Allergy status to analgesic agent; Z88.2 Allergy status to sulfonamides; Z88.8 Allergy status to other drugs, medicaments and biological substances; Z79.899 Other long term (current) drug therapy; Z86.711 Personal history of pulmonary embolism; Z82.49 Family history of ischemic heart disease and other diseases of the circulatory system; Z87.891 Personal history of nicotine dependence
CPT/HCPCS: 36415; 71046; 73700; 74176; 80048; 80053; 81001; 82607; 82746; 83036; 83605; 83735; 83880; 84484; 85025; 85610; 85730; 87040; 87077; 87186; 87205; 93971; 96365; 96367; 96372; 97163; G0378; J1956; J2405; J3490

== ENCOUNTER 2019-11-13 13:06 | Inpatient (IN) | payer OTHER ==
[~2019-11-13] VITALS: Ht 170.2 cm; Wt 78.6 kg
[~2019-11-13 13:06] MED LIST changes: -DIAZ5TAB OR; +FURO1TAB32 PO; -GABA100C9 PO; +PREG100C PO
[2019-11-13 14:07] LABS: Basophils # (auto) 0 10 ^3/uL (0-0.2); Basophils % (auto) 0.7 % (0.0-2.0); Eosinophils # (auto) 0.2 10 ^3/uL (0-0.8); Eosinophils % (auto) 3.4 % (0.0-7.0); Hemoglobin 12.4 g/dL (12.2-16.2); Lymphocytes # (auto) 1.2 10 ^3/uL (0.4-5.4); Lymphocytes % (auto) 17.3 % (10.0-50.0); Mean Corpuscular Hemoglobin 29.5 pg (28.0-32.0); Mean Corpuscular Hgb Conc. 32.6 g/dL (32.0-36.0); Mean Corpuscular Volume 90.4 fL (80.0-100.0); Monocytes # (auto) 0.5 10 ^3/uL (0-1.3); Monocytes % (auto) 7.4 % (0.0-12.0); Neutrophils # (auto) 4.8 10 ^3/uL (1.6-8.6); Neutrophils % (auto) 71.2 % (37.0-80.0); Nucleated Red Blood Cells % 0.4 %; Platelet Count (auto) 269 10^3/uL (140-450); Red Blood Cells 4.21 10^6/uL (4.0-5.20); Red Cell Distribution Width 14.8 % (11.8-14.3); White Blood Cell 6.7 10^3/uL (4.4-10.8)
[2019-11-13 14:17] LABS: Albumin 3.3 g/dL (3.4-5.0); Calcium 9.2 mg/dL (8.5-10.1); Potassium 4.1 mmol/L (3.5-5.1)
[2019-11-13 14:20] LABS: BUN/Creatinine Ratio 33.7; Bilirubin, Total 0.4 mg/dL (0.2-1.0); Total Protein 7.7 g/dL (6.4-8.2)
[2019-11-13] MEDS ORDERED: MORPHINE SULF INJ 2 MG/ML SYRINGE 1ML IV ONE (20:00)
[2019-11-13] MEDS ORDERED: ONDANSETRON HCL 4 MG/2 ML VIAL IV ONE (20:00)
[2019-11-13 20:22] LABS: Basophils # (auto) 0 10 ^3/uL (0-0.2); Basophils % (auto) 0.7 % (0.0-2.0); Eosinophils # (auto) 0.3 10 ^3/uL (0-0.8); Eosinophils % (auto) 5.9 % (0.0-7.0); Hematocrit 38.6 % (36.0-46.0); Hemoglobin 12.5 g/dL (12.2-16.2); Lymphocytes # (auto) 1.3 10 ^3/uL (0.4-5.4); Mean Corpuscular Hemoglobin 29.9 pg (28.0-32.0); Mean Corpuscular Hgb Conc. 32.5 g/dL (32.0-36.0); Mean Corpuscular Volume 92.1 fL (80.0-100.0); Monocytes # (auto) 0.6 10 ^3/uL (0-1.3); Monocytes % (auto) 9.7 % (0.0-12.0); Neutrophils # (auto) 3.6 10 ^3/uL (1.6-8.6); Neutrophils % (auto) 61.7 % (37.0-80.0); Nucleated Red Blood Cells % 0.1 %; Platelet Count (auto) 266 10^3/uL (140-450); Red Blood Cells 4.19 10^6/uL (4.0-5.20); Red Cell Distribution Width 14.6 % (11.8-14.3); White Blood Cell 5.8 10^3/uL (4.4-10.8)
[2019-11-13 20:39] LABS: INR 1.08 (0.9-1.15); Partial Thromboplastin Time 32.7 sec (23.64-32.05)
[2019-11-13 20:46] LABS: Anion Gap 4 (5-15); Blood Urea Nitrogen 31 mg/dL (7-18); Calcium 8.8 mg/dL (8.5-10.1); Carbon Dioxide 31 mmol/L (21-32); Chloride 103 mmol/L (98-107); Glucose 73 mg/dL (74-106); Magnesium 2.8 mg/dL (1.6-2.6); Sodium 138 mmol/L (136-145)
[2019-11-13 20:51] LABS: Alanine Aminotransferase 21 U/L (13-56); Alkaline Phosphatase 91 U/L (45-117); Aspartate Aminotransferase 21 U/L (15-37); BUN/Creatinine Ratio 30.1; Bilirubin, Total 0.4 mg/dL (0.2-1.0); GFR African American 65 mL/min; GFR Non-African American 54 mL/min; Total Protein 7.7 g/dL (6.4-8.2)
[2019-11-13] MEDS ORDERED: PIPERACILLIN-TAZOB 3.375GM 100 ML IV ONE (23:30)
[2019-11-13 23:40] LABS: Urine Bacteria FEW /hpf (None Seen); Urine Blood Negative /uL (Negative); Urine Specific Gravity 1.018 (1.001-1.035); Urine WBC 3 /hpf (0 - 5)
[2019-11-14] MEDS ORDERED: TEMAZEPAM 15 MG CAP PO PRN (04:30)
[2019-11-14] MEDS ORDERED: ACETAMINOPHEN 325 MG TAB PO PRN (04:30)
[2019-11-14] MEDS ORDERED: ONDANSETRON HCL 4 MG/2 ML VIAL IV PRN (04:30)
[2019-11-14] MEDS ORDERED: IOHEXOL 350 MG/ML 100ML IJ ONE (05:13)
[2019-11-14] MEDS: CLINDAMYCIN 600MG IV 50 ML IV SCH ×3 (06:24→22:06)
[2019-11-14] MEDS ORDERED: FUROSEMIDE 40 MG TAB PO SCH (10:00)
[2019-11-14] MEDS ORDERED: levoFLOXacin 500MG 100 ML IV ONE (10:00)
[2019-11-14] MEDS: FAMOTIDINE 20 MG TAB PO SCH (11:49)
[2019-11-14 17:23] VITALS: BP 96/52
--- NOTE | 2019-11-14 17:29 | NUR ---
MS admit from ER EVELIN,JC Mcmahan admitted to tele/MS after SBAR received. Patient oriented to ROCKY GUTIERREZ, primary RN, unit, room, bed, and unit policies regarding patient care and visiting hours. Patient weighed by bed scale and encouraged to call if they need something. All questions and concerns addressed, patient verbalized understanding.
[2019-11-14 17:33] VITALS: BP 109/57
--- NOTE | 2019-11-14 20:00 | NUR ---
RECEIVED PATIENT FROM DAY SHIFT RN. PATIENT RESTING IN BED. NO S/S OF DISTRESS NOTED. DENIED PAIN AT THIS TIME. POC INSTRUCTED AND ENCOURAGED PATIENT TO CALL FOR ACUTE CARE OCCUPATIONAL THERAPIST IF NEEDED. BED IN LOWEST POSITION WITH SIDE RAILS UP X 2. CALL NOYOLA WITHIN REACH. ALARM ON. CONTINUE TO MONITOR FOR CHANGES Q1H AND PRN.
--- NOTE | 2019-11-14 20:30 | NUR ---
WOUND PICTURES DONE. PILLOW TO ELEVATE BOTH LOWER LEGS. CONTINUE TO MONITOR.
[2019-11-14 22:00] VITALS: BP 111/63
--- NOTE | 2019-11-14 22:41 | NUR ---
ASSISTED PATIENT TO BEDSIDE COMMODE. PATIENT TOLERATED WELL. NO S/S OF DISTRESS NOTED. CONTINUE CARE
--- NOTE | 2019-11-15 01:41 | NUR ---
PATIENT SLEEPING. NO S/S OF DISTRESS NOTED. CONTINUE TO MONITOR.
--- NOTE | 2019-11-15 03:56 | NUR ---
ASSISTED PATIENT TO BEDSIDE COMMODE. PATIENT TOLERATED WELL. NO S/S OF DISTRESS NOTED. CONTINUE CARE
[2019-11-15 05:00] VITALS: BP 110/62
[2019-11-15] MEDS: CLINDAMYCIN 600MG IV 50 ML IV SCH ×3 (06:11→21:51)
[2019-11-15 07:38] LABS: Basophils # (auto) 0 10 ^3/uL (0-0.2); Basophils % (auto) 0.4 % (0.0-2.0); Eosinophils # (auto) 0.3 10 ^3/uL (0-0.8); Eosinophils % (auto) 6.4 % (0.0-7.0); Hematocrit 36.2 % (36.0-46.0); Lymphocytes # (auto) 0.7 10 ^3/uL (0.4-5.4); Lymphocytes % (auto) 15.5 % (10.0-50.0); Mean Corpuscular Hemoglobin 30.2 pg (28.0-32.0); Mean Corpuscular Volume 91.4 fL (80.0-100.0); Monocytes # (auto) 0.4 10 ^3/uL (0-1.3); Monocytes % (auto) 8.4 % (0.0-12.0); Neutrophils # (auto) 3.4 10 ^3/uL (1.6-8.6); Neutrophils % (auto) 69.3 % (37.0-80.0); Platelet Count (auto) 228 10^3/uL (140-450); Red Blood Cells 3.96 10^6/uL (4.0-5.20); Red Cell Distribution Width 14.5 % (11.8-14.3); White Blood Cell 4.8 10^3/uL (4.4-10.8)
[2019-11-15 07:55] LABS: Calcium 8.9 mg/dL (8.5-10.1); Potassium 4.7 mmol/L (3.5-5.1)
[2019-11-15 09:03] VITALS: BP 103/54
[2019-11-15] MEDS: levoFLOXacin 250MG 50 ML IV SCH (09:54)
[2019-11-15] MEDS: FAMOTIDINE 20 MG TAB PO SCH (09:54)
--- NOTE | 2019-11-15 11:30 | NUR ---
Dr. Matthews at bedside, received new orders.
[2019-11-15] MEDS ORDERED: LISINOPRIL 20 MG TAB PO ONE (12:15)
[2019-11-15 13:00] VITALS: BP 115/65
[2019-11-15 17:10] VITALS: BP 120/61
--- NOTE | 2019-11-15 17:21 | NUR ---
Dr. Espinal at bedside discussed and exam patient.
--- NOTE | 2019-11-15 19:20 | NUR ---
RECEIVED PATIENT FROM DAY SHIFT RN. PATIENT RESTING IN BED. NO S/S OF DISTRESS NOTED. DENIED PAIN AT THIS TIME. POC INSTRUCTED AND ENCOURAGED PATIENT TO CALL FOR ACCOUNT SUPPORT REP IF NEEDED. BED IN LOWEST POSITION WITH SIDE RAILS UP X 2. CALL NOYOLA WITHIN REACH. ALARM ON. CONTINUE TO MONITOR FOR CHANGES Q1H AND PRN.
[2019-11-15] MEDS: diazePAM 2 MG TAB PO SCH (21:50)
[2019-11-15] MEDS: PREGABALIN 25 MG CAP PO SCH (21:50)
[2019-11-15 22:00] VITALS: BP 121/66
--- NOTE | 2019-11-16 01:27 | NUR ---
PATIENT SLEEPING. NO S/S OF DISTRESS NOTED. CONTINUE TO MONITOR.
--- NOTE | 2019-11-16 04:27 | NUR ---
ASSISTED PATIENT TO BEDSIDE COMMODE. PATIENT TOLERATED WELL. NO S/S OF DISTRESS NOTED. CONTINUE CARE
[2019-11-16 05:00] VITALS: BP 121/70
[2019-11-16] MEDS: CLINDAMYCIN 600MG IV 50 ML IV SCH ×3 (06:08→22:17)
[2019-11-16 08:54] VITALS: BP 122/70
[2019-11-16] MEDS ORDERED: LISINOPRIL 20 MG TAB PO SCH ×2 (10:00)
[2019-11-16] MEDS: PREGABALIN 25 MG CAP PO SCH ×2 (10:32→22:17)
[2019-11-16] MEDS: levoFLOXacin 250MG 50 ML IV SCH (10:32)
[2019-11-16] MEDS: FAMOTIDINE 20 MG TAB PO SCH (10:32)
[2019-11-16 13:00] VITALS: BP 112/58
[2019-11-16 16:51] VITALS: BP 124/70
--- NOTE | 2019-11-16 19:15 | NUR ---
Opening Shift Note Assumed care of patient, awake and alert. No S/S of distress/SOB or pain. Safety measures in place bed in lowest position, side rails up x2, bed alarm on, and call light within reach. Instructed on POC and to call for assist PRN, will continue to monitor for changes Q1hr and PRN.
[2019-11-16 22:00] VITALS: BP 122/61
[2019-11-16] MEDS: diazePAM 2 MG TAB PO SCH ×2 (22:17→22:27)
[2019-11-17 05:00] VITALS: BP 118/64
[2019-11-17] MEDS: CLINDAMYCIN 600MG IV 50 ML IV SCH ×3 (05:41→21:58)
[2019-11-17 09:18] VITALS: BP 113/79
--- NOTE | 2019-11-17 09:20 | NUR ---
Dr. Ana Cristina Quintero at bedside to discuss plan of care with patient.
[2019-11-17] MEDS: levoFLOXacin 250MG 50 ML IV SCH (10:54)
[2019-11-17] MEDS: PREGABALIN 25 MG CAP PO SCH ×2 (10:55→21:58)
[2019-11-17] MEDS: FAMOTIDINE 20 MG TAB PO SCH (10:55)
--- NOTE | 2019-11-17 12:17 | NUR ---
Est energy needs 4562-9511 kcal (20-22 kcal/kg BW 85kg) Est protein needs 68-85g (0.8-1g/kg BW 85kg) Will reassess prn. Addendum: 11/17/19 at [address] Amended: Links added.
[2019-11-17 14:12] VITALS: BP 121/70
[2019-11-17 17:00] VITALS: BP 119/69
--- NOTE | 2019-11-17 19:20 | NUR ---
Opening Shift Note Assumed care of patient, awake and alert. No S/S of distress/SOB or pain. Safety measures in place bed in lowest position, side rails up x2, and call light within reach. Instructed on POC and to call for assist PRN, will continue to monitor for changes Q1hr and PRN.
[2019-11-17] MEDS: diazePAM 2 MG TAB PO SCH (21:58)
[2019-11-17 22:00] VITALS: BP 122/54
--- NOTE | 2019-11-17 22:00 | NUR ---
patient up to commode with assist.
[2019-11-18 05:00] VITALS: BP 115/82
[2019-11-18] MEDS: CLINDAMYCIN 600MG IV 50 ML IV SCH ×2 (06:11→14:00)
--- NOTE | 2019-11-18 07:30 | NUR ---
Opening Shift Note Assumed care of patient, who is alert and oriented x4. Respirations are even and unlabored. No S/S of distress/SOB or pain. Bed is low, locked with 2x side rails up. Call light is within reach. Instructed on POC and to call for assist PRN, will continue to monitor for changes Q1hr and PRN.
[2019-11-18 09:19] VITALS: BP 113/61
[2019-11-18] MEDS: levoFLOXacin 250MG 50 ML IV SCH (11:11)
[2019-11-18] MEDS: PREGABALIN 25 MG CAP PO SCH ×2 (11:12→21:32)
[2019-11-18] MEDS: FAMOTIDINE 20 MG TAB PO SCH (11:12)
[2019-11-18 13:00] VITALS: BP 117/65
--- NOTE | 2019-11-18 19:20 | NUR ---
OPENING NOTE- NOC SHIFT PATIENT IS ALERT AND ORIENTED X4, PATIENT IS SITTING UP IN BED, BED IS LOCKED AT LOWEST POSITION, BED RAILS UP X2 AND HEAD OF BED IS UP >30 DEGREES. DISCUSSED POC WITH PATIENT AND INSTRUCTED PATIENT TO CALL PRN; PATIENT VERBALIZED UNDERSTANDING. WILL CONTINUE TO MONITOR Q1H AND PRN. BEDSIDE TABLE WITHIN REACH, CALL LIGHT WITHIN REACH.
[2019-11-18] MEDS: diazePAM 2 MG TAB PO SCH (21:32)
[2019-11-18 22:00] VITALS: BP 110/64
--- NOTE | 2019-11-18 23:00 | NUR ---
PATIENT TO BEDSIDE COMMODE WITH ASSISTANCE.
--- NOTE | 2019-11-18 23:00 | NUR ---
COMPLETE LINEN CHANGE.
[2019-11-19 05:00] VITALS: BP 120/65
[2019-11-19 05:28] LABS: Basophils # (auto) 0 10 ^3/uL (0-0.2); Basophils % (auto) 0.6 % (0.0-2.0); Eosinophils # (auto) 0.4 10 ^3/uL (0-0.8); Eosinophils % (auto) 7.9 % (0.0-7.0); Hematocrit 40.5 % (36.0-46.0); Hemoglobin 13.4 g/dL (12.2-16.2); Lymphocytes # (auto) 1.4 10 ^3/uL (0.4-5.4); Lymphocytes % (auto) 26.4 % (10.0-50.0); Mean Corpuscular Hemoglobin 29.9 pg (28.0-32.0); Mean Corpuscular Volume 90.6 fL (80.0-100.0); Monocytes # (auto) 0.4 10 ^3/uL (0-1.3); Monocytes % (auto) 8.3 % (0.0-12.0); Neutrophils % (auto) 56.8 % (37.0-80.0); Nucleated Red Blood Cells % 0.1 %; Platelet Count (auto) 216 10^3/uL (140-450); Red Blood Cells 4.48 10^6/uL (4.0-5.20); Red Cell Distribution Width 14.6 % (11.8-14.3); White Blood Cell 5.4 10^3/uL (4.4-10.8)
[2019-11-19 05:45] LABS: INR 1.08 (0.9-1.15); Partial Thromboplastin Time 29.3 sec (23.64-32.05)
[2019-11-19 05:48] LABS: BUN/Creatinine Ratio 33.3; Calcium 9.4 mg/dL (8.5-10.1); Potassium 4.4 mmol/L (3.5-5.1)
[2019-11-19] MEDS: CLINDAMYCIN HCL 150 MG CAP PO SCH ×3 (06:34→22:51)
--- NOTE | 2019-11-19 07:35 | NUR ---
Breakfast shun Martin in concrete plant laborer okay for patient to have a light breakfast and morning PO medications. Scheduled procedure with Dr. Johnson is scheduled for this afternoon. Will continue to monitor.
[2019-11-19 09:00] VITALS: BP 117/67
[2019-11-19] MEDS: levoFLOXacin 250 MG TAB PO SCH (09:40)
[2019-11-19] MEDS: PREGABALIN 25 MG CAP PO SCH ×2 (09:40→22:52)
[2019-11-19] MEDS: FAMOTIDINE 20 MG TAB PO SCH (09:40)
--- NOTE | 2019-11-19 12:44 | NUR ---
Patient off unit Patient taken to medical laboratory manager for scheduled procedure with Dr. Johnson. No distress noted upon departure.
[2019-11-19 12:50] VITALS: BP 105/69
--- NOTE | 2019-11-19 13:58 | NUR ---
assessment Patient is a 84 year old female who is alert and oriented. Prior to admission patient lived home with her son and functioned with assistance. Per patient she will return home to her prior living arrangements post discharge and her son will transport her home. Patient informed me she has a fww for home use. Patient uses [facility] for her PCP. Patient informed me she came to ER for leg swelling and pain and was admitted. Patient may need home health wound care on discharge. I informed patient she has a right to speak to a social staff worker regarding all care. I informed patient she has a right to participate in any and all discharge planning. Patient does not have a POA and advanced directive. I have offered patient information on POA and advanced directives. I informed the patient the advantages and benefits of having an Advanced Directive. Patient verbalized understanding and agreed to discharge plan. Addendum: 11/19/19 at 1359 by Arabella ARREOLA Amended: Links added.
[2019-11-19] MEDS ORDERED: LIDOCAINE 2%HCL (LOCAL ANESTH.) INJ 20ML MDV ONE (14:34)
[2019-11-19] MEDS ORDERED: IOHEXOL 350 MG/ML 100ML IJ ONE (14:34)
[2019-11-19] MEDS ORDERED: fentaNYL CITRATE 100 MCG/2 ML VL ONE (15:05)
[2019-11-19] MEDS ORDERED: ANGIOMAX 250 MG VIAL IV ONE (15:06)
[2019-11-19] MEDS ORDERED: SODIUM CHL 0.9% 0 ML ONE (15:06)
[2019-11-19] MEDS ORDERED: MIDAZOLAM HCL 1MG/1ML-2 ML VIAL ONE (15:06)
--- NOTE | 2019-11-19 16:30 | NUR ---
Back on unit S/p R/L BLE Angio with Dr. Johnson. Incision to right groin. No hematoma, bleeding noted. Dressing is C/D/I/. Bed alarm on for safety. Bed is low, locked with 2x side rails up. Call light is within reach. Will continue to monitor.
[2019-11-19 17:00] VITALS: BP 121/67
--- NOTE | 2019-11-19 19:20 | NUR ---
OPENIN NOTE- NOC SHIFT RECEIVED REPORT FROM DAY SHIFT RN. PATIENT IS ALERT AND ORIENTED X4, ANSWERS IN COMPLETE SENTENCES AND MAKES APPROPRIATE EYE CONTACT. PATIENT IS IN BED, BED IS LOCKED AT LOWEST POSITION, BED RAIL UP X2 AND HEAD OF BED IS UP >30 DEGREES. BEDSIDE TABLE WITHIN REACH, CALL LIGHT WITHIN REACH. DISCUSSED POC WITH PATIENT AND INSTRUCTED PATIENT TO CALL PRN; PATIENT VERBALIZED UNDERSTANDING.
[2019-11-19 22:01] VITALS: BP 106/59
[2019-11-19] MEDS: diazePAM 2 MG TAB PO SCH (22:52)
--- NOTE | 2019-11-19 23:00 | NUR ---
ASSIST PATIENT TO BEDSIDE COMMODE.
[2019-11-20 05:03] VITALS: BP 115/60
[2019-11-20 05:51] LABS: Basophils # (auto) 0.1 10 ^3/uL (0-0.2); Basophils % (auto) 1.2 % (0.0-2.0); Eosinophils # (auto) 0.4 10 ^3/uL (0-0.8); Eosinophils % (auto) 7.5 % (0.0-7.0); Hematocrit 37.5 % (36.0-46.0); Hemoglobin 12.6 g/dL (12.2-16.2); Lymphocytes # (auto) 1.3 10 ^3/uL (0.4-5.4); Lymphocytes % (auto) 24.7 % (10.0-50.0); Mean Corpuscular Hemoglobin 30.6 pg (28.0-32.0); Mean Corpuscular Hgb Conc. 33.6 g/dL (32.0-36.0); Mean Corpuscular Volume 90.9 fL (80.0-100.0); Monocytes # (auto) 0.5 10 ^3/uL (0-1.3); Monocytes % (auto) 8.7 % (0.0-12.0); Neutrophils % (auto) 57.9 % (37.0-80.0); Nucleated Red Blood Cells % 0.1 %; Platelet Count (auto) 203 10^3/uL (140-450); Red Blood Cells 4.12 10^6/uL (4.0-5.20); Red Cell Distribution Width 14.3 % (11.8-14.3); White Blood Cell 5.2 10^3/uL (4.4-10.8)
[2019-11-20] MEDS: CLINDAMYCIN HCL 150 MG CAP PO SCH ×3 (05:56→21:31)
[2019-11-20 06:31] LABS: BUN/Creatinine Ratio 35.4; Potassium 4.5 mmol/L (3.5-5.1)
[2019-11-20 08:00] VITALS: BP 113/56
--- NOTE | 2019-11-20 08:00 | NUR ---
ASSESSMENT NOTE PT IS ALERT ORIENTED X4, RESTING IN BED COMFORTABLY, ABLE TO SELF REPOSITION AND VERBALIS HER DEMANDS, PAIN 0/10 AT THIS TIME, SKIN DISCOLORATION NOTED ON BOTH LOWER EXTREMITIES, ASSISTED TO BED SIDE COMMODE NEEDED, CALL LIGHT WITHIN REACH
[2019-11-20 08:52] VITALS: BP 106/56
[2019-11-20] MEDS: levoFLOXacin 250 MG TAB PO SCH (09:03)
[2019-11-20] MEDS: PREGABALIN 25 MG CAP PO SCH ×2 (09:03→21:31)
[2019-11-20] MEDS: FAMOTIDINE 20 MG TAB PO SCH (10:00)
--- NOTE | 2019-11-20 10:00 | NUR ---
BED SIDE COMMODE ASSISTED PT TO BSC AT ALL TIMES
[2019-11-20 12:33] VITALS: BP 107/67
--- NOTE | 2019-11-20 12:38 | NUR ---
Nutrition Follow-up Wt.: 75.1 kg Pt`s with MD at bedside. per records pt s/p angiogram and cellulitis. pt with no distress noted currently on cardiac diet with adequate Po of 75% x 3 per RN doc Est energy needs 8129-3345 kcal (20-22 kcal/kg BW 85kg) Est protein needs 68-85g (0.8-1g/kg BW 85kg) Will reassess prn. Labs: BUN 35 H GI: pt zee s1 BM 6/ today per RN doc Skin: BS 17 mod risk pt with callous and cellulitis per RN doc PES: Overweight aeb pt is 139% of IBW and BMI is 29.3 kg/m2 r/t caloric intake in excess of needs Recommendations: 1) Continue to monitor po intake, skin, labs 2) Refer pt to [facility]PD on dc 3) Continue current plan of care. 4) Consider adding MVI and Vit C BID
[2019-11-20 16:45] VITALS: BP 116/71
--- NOTE | 2019-11-20 18:59 | NUR ---
PT CONTINUE STABLE , CONTINUE MONITORING
--- NOTE | 2019-11-20 19:30 | NUR ---
Opening Shift Note Assumed care of patient, awake and alert x4. No S/S of distress/SOB or pain. Patient is refusing a new IV, she said "If it works and doesn't hurt I don't want to get poked," the IV does flush easily and is asymptomatic in appearance. Call light is within reach, side rails up x2, bed is in the lowest position. Instructed on POC and to call for assist PRN, will continue to monitor for changes Q1hr and PRN.
[2019-11-20 21:37] VITALS: BP 111/54
--- NOTE | 2019-11-20 23:02 | NUR ---
Patient assisted to the bedside commode and back to bed. Repositioned for comfort, call light is within reach, will continue to monitor.
[2019-11-20] MEDS: diazePAM 2 MG TAB PO SCH (23:21)
[2019-11-21 05:25] VITALS: BP 104/73
[2019-11-21] MEDS: CLINDAMYCIN HCL 150 MG CAP PO SCH ×2 (06:49→13:48)
[2019-11-21 08:00] VITALS: BP 113/56
[2019-11-21 09:00] VITALS: BP 116/65
[2019-11-21] MEDS: PREGABALIN 25 MG CAP PO SCH (09:28)
[2019-11-21] MEDS: levoFLOXacin 250 MG TAB PO SCH (09:28)
--- NOTE | 2019-11-21 09:30 | NUR ---
DR POND AT BED SIDE FOLLOWING UP ON PT, DR POND GAVE PT THE DISCHARGE INSTRUCTIONS, WITH THE PLAN TO AMBULATE WITH THE PHYSICAL THERAPY TODAY, PT VERBALIS UNDERSTANDING
[2019-11-21] MEDS: FAMOTIDINE 20 MG TAB PO SCH (10:00)
[2019-11-21] MEDS ORDERED: CLIN150C7 PO (11:57)
[2019-11-21] MEDS ORDERED: FURO1TAB32 PO (11:58)
[2019-11-21] MEDS ORDERED: LEVO250T69 PO (11:58)
[2019-11-21 12:46] VITALS: BP 113/56
[2019-11-21 13:00] VITALS: BP 105/59
--- NOTE | 2019-11-21 13:57 | NUR ---
PHYSICAL THERAPY AT BED SIDE
--- NOTE | 2019-11-21 14:25 | NUR ---
PT TOLERATED THE WALK WELL WITH PHYSICAL THERAPY BY USING THE FRONT WHEEL WALKER, SAT IN ROOM AIR 89-90 PT STATED THAT IS MY BASE LINE ALWAYS, AFTER WENT BACK TO BED IS 95%
--- NOTE | 2019-11-21 16:00 | NUR ---
Discharge instructions given as ordered. Encourage to follow up with PMD as instructed. All questions and concerns addressed. Patient verbalized understanding. Medication reconciliation form completed and copy given to patient. IV removed with catheter intact, pressure dressing applied.Patient taken to vehicle via wheelchair with all personal belongings, accompanied by staff and family member. No distress noted at time of departure.
== END 2019-11-21 16:00 | disposition home or self-care (01) | DRG 603 ==
LOC: ER 13:06 → OVERFLOW 13:07 → CENTRAL 11-14 16:30
PROVIDERS: ADMIT Nurse Practitioner; ATTEND Internal Medicine Nephrology
PROC: B41G1ZZ Fluoroscopy of Left Lower Extremity Arteries using Low Osmolar Contrast (ICD-10-PCS; principal; 2019-11-19)
PROC: B41F1ZZ Fluoroscopy of Right Lower Extremity Arteries using Low Osmolar Contrast (ICD-10-PCS; 2019-11-19)
DX: L03.116 Cellulitis of left lower limb (principal); E87.3 Alkalosis; M48.56XA Collapsed vertebra, not elsewhere classified, lumbar region, initial encounter for fracture; I87.2 Venous insufficiency (chronic) (peripheral); L03.115 Cellulitis of right lower limb; E11.51 Type 2 diabetes mellitus with diabetic peripheral angiopathy without gangrene; E11.621 Type 2 diabetes mellitus with foot ulcer; J84.10 Pulmonary fibrosis, unspecified; I50.9 Heart failure, unspecified; K21.9 Gastro-esophageal reflux disease without esophagitis; I70.209 Unspecified atherosclerosis of native arteries of extremities, unspecified extremity; I11.0 Hypertensive heart disease with heart failure; I70.0 Atherosclerosis of aorta; L30.9 Dermatitis, unspecified; F41.8 Other specified anxiety disorders; M19.90 Unspecified osteoarthritis, unspecified site; L97.509 Non-pressure chronic ulcer of other part of unspecified foot with unspecified severity; J43.9 Emphysema, unspecified; X58.XXXA Exposure to other specified factors, initial encounter; M85.80 Other specified disorders of bone density and structure, unspecified site; Z82.49 Family history of ischemic heart disease and other diseases of the circulatory system; Z86.711 Personal history of pulmonary embolism; Z88.2 Allergy status to sulfonamides; Z88.8 Allergy status to other drugs, medicaments and biological substances; Z79.899 Other long term (current) drug therapy; Y93.89 Activity, other specified; Y92.89 Other specified places as the place of occurrence of the external cause; Y99.8 Other external cause status
CPT/HCPCS: 36415; 37224; 71045; 71275; 80048; 80053; 81001; 83605; 83735; 83880; 84443; 84484; 85025; 85379; 85610; 85730; 86850; 86900; 86901; 87040; 93306; 93926; 93971; 96365; 96366; 96367; 96375; 97163; 99152; G0378; J1956; J2250; J2405; J2543; J3490

== ENCOUNTER → 2020-03-25 | Outpatient (CLI) | payer OTHER ==
[~2020-03-25] MED LIST changes: +CLIN150C7 PO; +LEVO250T69 PO; -LISI-646 PO
[2020-03-25 10:26] LABS: Basophils # (auto) 0 10 ^3/uL (0-0.2); Basophils % (auto) 0.3 % (0.0-2.0); Eosinophils # (auto) 0.1 10 ^3/uL (0-0.8); Eosinophils % (auto) 1.2 % (0.0-7.0); Hematocrit 41.3 % (36.0-46.0); Hemoglobin 13.9 g/dL (12.2-16.2); Lymphocytes # (auto) 1.5 10 ^3/uL (0.4-5.4); Lymphocytes % (auto) 16.6 % (10.0-50.0); Mean Corpuscular Hemoglobin 30.4 pg (28.0-32.0); Mean Corpuscular Hgb Conc. 33.6 g/dL (32.0-36.0); Mean Corpuscular Volume 90.6 fL (80.0-100.0); Monocytes # (auto) 0.5 10 ^3/uL (0-1.3); Monocytes % (auto) 5.2 % (0.0-12.0); Neutrophils # (auto) 6.8 10 ^3/uL (1.6-8.6); Neutrophils % (auto) 76.7 % (37.0-80.0); Platelet Count (auto) 184 10^3/uL (140-450); Red Blood Cells 4.55 10^6/uL (4.0-5.20); Red Cell Distribution Width 16.2 % (11.8-14.3); White Blood Cell 8.9 10^3/uL (4.4-10.8)
[2020-03-25 10:49] LABS: Albumin 3.6 g/dL (3.4-5.0); Calcium 9.7 mg/dL (8.5-10.1); Potassium 4.1 mmol/L (3.5-5.1)
[2020-03-25 10:55] LABS: BUN/Creatinine Ratio 30.6; Bilirubin, Total 0.6 mg/dL (0.2-1.0); Total Protein 7.6 g/dL (6.4-8.2)
== END | disposition home or self-care (01) ==
LOC: LAB 09:50
PROVIDERS: ATTEND Physician Assistant
DX: E78.49 Other hyperlipidemia (principal); I10 Essential (primary) hypertension; R79.89 Other specified abnormal findings of blood chemistry; I73.9 Peripheral vascular disease, unspecified
CPT/HCPCS: 36415; 80053; 80061; 85025

== ENCOUNTER 2021-01-19 09:25 | Inpatient (IN) | payer OTHER ==
[~2021-01-19] VITALS: Ht 170.2 cm; Wt 78.4 kg
[~2021-01-19 09:25] MED LIST changes: -CLIN150C7 PO; +CLIN150C8 PO
[2021-01-19 10:59] LABS: Basophils # (auto) 0 10 ^3/uL (0-0.2); Basophils % (auto) 0.3 % (0.0-2.0); Eosinophils # (auto) 0 10 ^3/uL (0-0.8); Hematocrit 38.1 % (36.0-46.0); Hemoglobin 12.9 g/dL (12.2-16.2); Lymphocytes # (auto) 1.2 10 ^3/uL (0.4-5.4); Lymphocytes % (auto) 7.5 % (10.0-50.0); Mean Corpuscular Hemoglobin 29.5 pg (28.0-32.0); Mean Corpuscular Hgb Conc. 33.9 g/dL (32.0-36.0); Mean Corpuscular Volume 87.1 fL (80.0-100.0); Monocytes # (auto) 0.5 10 ^3/uL (0-1.3); Monocytes % (auto) 3.3 % (0.0-12.0); Neutrophils # (auto) 13.6 10 ^3/uL (1.6-8.6); Neutrophils % (auto) 88.9 % (37.0-80.0); Nucleated Red Blood Cells % 0.1 %; Red Blood Cells 4.38 10^6/uL (4.0-5.20); Red Cell Distribution Width 16.3 % (11.8-14.3); White Blood Cell 15.4 10^3/uL (4.4-10.8)
[2021-01-19 11:28] LABS: Albumin 2.7 g/dL (3.4-5.0); BUN/Creatinine Ratio 23.3; Calcium 8.7 mg/dL (8.5-10.1); Potassium 4.1 mmol/L (3.5-5.1)
[2021-01-19 11:46] LABS: Bilirubin, Total 0.6 mg/dL (0.2-1.0); Total Protein 7.1 g/dL (6.4-8.2)
[2021-01-19] MEDS ORDERED: FUROSEMIDE 40 MG/4 ML VIAL IV ONE (12:00)
[2021-01-19] MEDS ORDERED: ASPirin 81 mg TAB PO ONE (12:00)
[2021-01-19] MEDS ORDERED: ENOXAPARIN SOD 60 MG/0.6 ML SYRINGE SC ONE (12:00)
[2021-01-19] MEDS ORDERED: ALBUMIN 25% 50 ML IV ONE (13:15)
[2021-01-19] MEDS ORDERED: MORPHINE SULFATE INJECTION 2 MG/2 ML SYRG IV PRN ×2 (13:15)
[2021-01-19] MEDS ORDERED: NITROGLYCERIN 0.4 MG SL TAB SL PRN (13:15)
[2021-01-19] MEDS ORDERED: ONDANSETRON HCL 4 MG/2 ML VIAL IV PRN (13:15)
[2021-01-19] MEDS: CLINDAMYCIN 300MG IV 50 ML IV SCH ×2 (14:33→22:48)
[2021-01-19] MEDS ORDERED: NOREPINEPHRINE 8 MG/250ML KIT 250 ML IV ONE (14:59)
[2021-01-19 17:12] LABS: Urine Bacteria NONE SEEN /hpf (None Seen); Urine Blood Negative /uL (Negative); Urine Hyaline Cast MOD /lpf (0 - 2); Urine Mucus FEW (None Seen); Urine Specific Gravity 1.018 (1.001-1.035); Urine WBC 2 /hpf (0 - 5)
[2021-01-19] MEDS: HYDROcodone-ACET 5/325MG TAB PO PRN (18:49)
[2021-01-19] MEDS ORDERED: NOREPINEPHRINE 8 MG/250ML KIT 250 ML IV SCH (20:30)
[2021-01-19] MEDS ORDERED: ENOXAPARIN SOD 60 MG/0.6 ML SYRINGE SC SCH (22:00)
[2021-01-19] MEDS: ATORVASTATIN 20 MG TAB PO SCH (22:49)
[2021-01-20] MEDS: HYDROcodone-ACET 5/325MG TAB PO PRN ×3 (03:40→22:31)
[2021-01-20 05:46] LABS: Basophils # (auto) 0.1 10 ^3/uL (0-0.2); Basophils % (auto) 0.5 % (0.0-2.0); Eosinophils # (auto) 0.2 10 ^3/uL (0-0.8); Eosinophils % (auto) 1.2 % (0.0-7.0); Hematocrit 37.7 % (36.0-46.0); Hemoglobin 12.9 g/dL (12.2-16.2); Lymphocytes # (auto) 1.7 10 ^3/uL (0.4-5.4); Lymphocytes % (auto) 12.2 % (10.0-50.0); Mean Corpuscular Hemoglobin 30.1 pg (28.0-32.0); Mean Corpuscular Hgb Conc. 34.2 g/dL (32.0-36.0); Mean Corpuscular Volume 88.1 fL (80.0-100.0); Monocytes # (auto) 0.6 10 ^3/uL (0-1.3); Monocytes % (auto) 4.1 % (0.0-12.0); Neutrophils # (auto) 11.8 10 ^3/uL (1.6-8.6); Nucleated Red Blood Cells % 0.1 %; Red Blood Cells 4.27 10^6/uL (4.0-5.20); Red Cell Distribution Width 16.2 % (11.8-14.3); White Blood Cell 14.4 10^3/uL (4.4-10.8)
[2021-01-20 06:01] LABS: INR 1.31 (0.9-1.15); Partial Thromboplastin Time 41.4 sec (23.6-33.0)
[2021-01-20] MEDS: CLINDAMYCIN 300MG IV 50 ML IV SCH ×2 (06:14→15:20)
[2021-01-20 06:16] LABS: Calcium 8.7 mg/dL (8.5-10.1); Potassium 3.7 mmol/L (3.5-5.1)
[2021-01-20 06:19] LABS: BUN/Creatinine Ratio 36.7
[2021-01-20] MEDS ORDERED: IODIXANOL 320MG/ML 100ML BTL IV ONE (07:38)
[2021-01-20] MEDS ORDERED: cefTRIAXone 1GM/50ML D5W 50 ML IV SCH (09:00)
[2021-01-20] MEDS: ENOXAPARIN SOD 80 MG/0.8ML SYRINGE SC SCH ×2 (09:45→22:20)
[2021-01-20] MEDS: ASPirin-EC 81 mg tab PO SCH (09:45)
[2021-01-20] MEDS ORDERED: levoFLOXacin 500MG 100 ML IV SCH (10:00)
[2021-01-20] MEDS ORDERED: levoFLOXacin 250MG 50 ML IV SCH (10:00)
[2021-01-20] MEDS ORDERED: ENOXAPARIN SOD 40 MG/0.4 ML SYRINGE SC SCH (10:00)
[2021-01-20] MEDS ORDERED: IOHEXOL 350 MG/ML 100ML IJ ONE ×2 (11:56→13:45)
[2021-01-20] MEDS ORDERED: VANCOMYCIN PER PHARMACY 0 MG IV SCH (16:15)
[2021-01-20] MEDS: VANCOMYCIN 750mg/250ml 250 ML IV SCH (17:17)
[2021-01-20] MEDS: PIPERACILLIN-TAZOB 3.375GM 100 ML IV SCH ×2 (18:00→23:34)
[2021-01-20 22:00] VITALS: BP 114/66
[2021-01-20] MEDS: ATORVASTATIN 20 MG TAB PO SCH (22:20)
[2021-01-20 22:59] VITALS: BP 108/51
[2021-01-21 05:00] VITALS: BP 111/58
[2021-01-21] MEDS: PIPERACILLIN-TAZOB 3.375GM 100 ML IV SCH ×3 (06:00→20:00)
[2021-01-21 06:18] LABS: BUN/Creatinine Ratio 36.4; Calcium 8.7 mg/dL (8.5-10.1)
[2021-01-21 09:00] VITALS: BP 138/72
[2021-01-21] MEDS: ENOXAPARIN SOD 80 MG/0.8ML SYRINGE SC SCH ×2 (09:47→22:39)
[2021-01-21] MEDS: ASPirin-EC 81 mg tab PO SCH (09:47)
[2021-01-21 13:00] VITALS: BP 117/63
[2021-01-21 17:00] VITALS: BP 130/73
[2021-01-21] MEDS: VANCOMYCIN 750mg/250ml 250 ML IV SCH (18:30)
[2021-01-21 22:00] VITALS: BP 125/58
[2021-01-21] MEDS: ATORVASTATIN 20 MG TAB PO SCH (22:40)
[2021-01-21] MEDS: ACETYLCYSTEINE 10 %(100MG/ML) SOL 4ML NEB SCH (22:52)
[2021-01-21] MEDS: HYDROcodone-ACET 5/325MG TAB PO PRN (22:56)
[2021-01-22] MEDS: PIPERACILLIN-TAZOB 3.375GM 100 ML IV SCH ×2 (02:31→08:00)
[2021-01-22 05:00] VITALS: BP 120/66
[2021-01-22 06:55] LABS: Potassium 3.8 mmol/L (3.5-5.1)
[2021-01-22 07:02] LABS: BUN/Creatinine Ratio 27.1; Calcium 8.7 mg/dL (8.5-10.1)
[2021-01-22] MEDS: ACETYLCYSTEINE 10 %(100MG/ML) SOL 4ML NEB SCH ×2 (07:30→14:00)
[2021-01-22] MEDS: ALBUTEROL SULF 2.5 MG/0.5ML(0.5%) NEB SOLN NEB PRN (07:30)
[2021-01-22] MEDS: ASPirin-EC 81 mg tab PO SCH (08:09)
[2021-01-22] MEDS: ENOXAPARIN SOD 80 MG/0.8ML SYRINGE SC SCH ×2 (08:09→21:50)
[2021-01-22 09:00] VITALS: BP 140/84
[2021-01-22] MEDS ORDERED: levoFLOXacin 500MG 100 ML IV ONE (11:30)
[2021-01-22 17:00] VITALS: BP 143/87
[2021-01-22] MEDS: ATORVASTATIN 20 MG TAB PO SCH (21:49)
[2021-01-22] MEDS ORDERED: PREGABALIN 25 MG CAP PO SCH (22:00)
[2021-01-22 22:24] VITALS: BP 142/75
[2021-01-23] MEDS: ACETYLCYSTEINE 10 %(100MG/ML) SOL 4ML NEB SCH ×4 (00:47→22:26)
[2021-01-23] MEDS: ALBUTEROL SULF 2.5 MG/0.5ML(0.5%) NEB SOLN NEB PRN ×4 (00:47→22:18)
[2021-01-23 05:30] VITALS: BP 140/67
[2021-01-23 09:00] VITALS: BP 123/58
[2021-01-23] MEDS: PREGABALIN 25 MG CAP PO SCH ×2 (10:10→22:00)
[2021-01-23] MEDS: levoFLOXacin 500MG 100 ML IV SCH (10:11)
[2021-01-23] MEDS: ASPirin-EC 81 mg tab PO SCH (10:17)
[2021-01-23] MEDS: ENOXAPARIN SOD 80 MG/0.8ML SYRINGE SC SCH ×2 (10:20→22:00)
[2021-01-23 13:00] VITALS: BP 114/58
[2021-01-23 17:00] VITALS: BP 115/55
[2021-01-23 17:13] VITALS: BP 114/58
[2021-01-23] MEDS: ATORVASTATIN 20 MG TAB PO SCH (21:59)
[2021-01-23 22:00] VITALS: BP 128/58
[2021-01-23] MEDS: HYDROcodone-ACET 5/325MG TAB PO PRN (23:36)
[2021-01-24 05:00] VITALS: BP 122/68
[2021-01-24 06:02] LABS: Basophils # (auto) 0 10 ^3/uL (0-0.2); Basophils % (auto) 0.7 % (0.0-2.0); Eosinophils # (auto) 0.5 10 ^3/uL (0-0.8); Eosinophils % (auto) 7.7 % (0.0-7.0); Hematocrit 37.9 % (36.0-46.0); Hemoglobin 13.1 g/dL (12.2-16.2); Lymphocytes # (auto) 1.9 10 ^3/uL (0.4-5.4); Lymphocytes % (auto) 31.7 % (10.0-50.0); Mean Corpuscular Hemoglobin 30.2 pg (28.0-32.0); Mean Corpuscular Hgb Conc. 34.5 g/dL (32.0-36.0); Mean Corpuscular Volume 87.5 fL (80.0-100.0); Monocytes # (auto) 0.6 10 ^3/uL (0-1.3); Monocytes % (auto) 9.3 % (0.0-12.0); Neutrophils # (auto) 3.1 10 ^3/uL (1.6-8.6); Neutrophils % (auto) 50.6 % (37.0-80.0); Nucleated Red Blood Cells % 0.1 %; Red Blood Cells 4.33 10^6/uL (4.0-5.20); Red Cell Distribution Width 15.1 % (11.8-14.3)
[2021-01-24] MEDS: ACETYLCYSTEINE 10 %(100MG/ML) SOL 4ML NEB SCH ×3 (06:05→22:00)
[2021-01-24] MEDS: ALBUTEROL SULF 2.5 MG/0.5ML(0.5%) NEB SOLN NEB PRN ×2 (06:05→14:10)
[2021-01-24] MEDS: ACETAMINOPHEN 500 MG TAB PO PRN (06:11)
[2021-01-24 06:17] LABS: Calcium 8.8 mg/dL (8.5-10.1)
[2021-01-24 09:00] VITALS: BP 135/58
[2021-01-24] MEDS: PREGABALIN 25 MG CAP PO SCH ×2 (10:36→22:07)
[2021-01-24] MEDS: levoFLOXacin 500MG 100 ML IV SCH (10:36)
[2021-01-24] MEDS: ASPirin-EC 81 mg tab PO SCH (10:36)
[2021-01-24] MEDS: ENOXAPARIN SOD 80 MG/0.8ML SYRINGE SC SCH ×2 (10:37→22:08)
[2021-01-24 13:00] VITALS: BP 101/63
[2021-01-24 17:00] VITALS: BP 102/67
[2021-01-24 22:00] VITALS: BP 135/75
[2021-01-24] MEDS: ATORVASTATIN 20 MG TAB PO SCH (22:07)
[2021-01-24] MEDS: diazePAM 5 MG TAB PO SCH (23:50)
[2021-01-25 05:00] VITALS: BP 119/66
[2021-01-25] MEDS: HYDROcodone-ACET 5/325MG TAB PO PRN (05:02)
[2021-01-25] MEDS: ALBUTEROL SULF 2.5 MG/0.5ML(0.5%) NEB SOLN NEB PRN ×3 (07:13→19:35)
[2021-01-25] MEDS: ACETYLCYSTEINE 10 %(100MG/ML) SOL 4ML NEB SCH ×3 (07:13→19:35)
[2021-01-25 09:00] VITALS: BP 130/68
[2021-01-25] MEDS: levoFLOXacin 500MG 100 ML IV SCH (09:02)
[2021-01-25] MEDS: ENOXAPARIN SOD 80 MG/0.8ML SYRINGE SC SCH (09:03)
[2021-01-25] MEDS: ACETAMINOPHEN 500 MG TAB PO PRN (09:03)
[2021-01-25] MEDS: ASPirin-EC 81 mg tab PO SCH (09:03)
[2021-01-25] MEDS: PREGABALIN 25 MG CAP PO SCH ×2 (12:56→21:58)
[2021-01-25 13:00] VITALS: BP 115/62
[2021-01-25] MEDS ORDERED: CALCIUM CHLOR(10%) 100MG/ML 10ML SYRINGE IV ONE (13:59)
[2021-01-25] MEDS: AMPICILLIN & SULBACTAM SODIUM 3 GM in SODIUM CHL 0.9% 100 ML IV SCH ×3 (14:50→23:50)
[2021-01-25 17:00] VITALS: BP 122/71
[2021-01-25] MEDS: ATORVASTATIN 20 MG TAB PO SCH (21:58)
[2021-01-25 22:00] VITALS: BP 121/66
[2021-01-25] MEDS: diazePAM 5 MG TAB PO SCH (23:50)
[2021-01-26 05:00] VITALS: BP 112/72
[2021-01-26] MEDS: AMPICILLIN & SULBACTAM SODIUM 3 GM in SODIUM CHL 0.9% 100 ML IV SCH ×4 (05:31→23:34)
[2021-01-26 06:14] LABS: Basophils # (auto) 0 10 ^3/uL (0-0.2); Basophils % (auto) 0.5 % (0.0-2.0); Eosinophils # (auto) 0.5 10 ^3/uL (0-0.8); Hematocrit 35.7 % (36.0-46.0); Hemoglobin 12.2 g/dL (12.2-16.2); Lymphocytes # (auto) 1.4 10 ^3/uL (0.4-5.4); Lymphocytes % (auto) 21.1 % (10.0-50.0); Mean Corpuscular Hemoglobin 29.9 pg (28.0-32.0); Mean Corpuscular Hgb Conc. 34.1 g/dL (32.0-36.0); Mean Corpuscular Volume 87.8 fL (80.0-100.0); Monocytes # (auto) 0.5 10 ^3/uL (0-1.3); Monocytes % (auto) 7.1 % (0.0-12.0); Neutrophils # (auto) 4.4 10 ^3/uL (1.6-8.6); Neutrophils % (auto) 64.3 % (37.0-80.0); Red Blood Cells 4.07 10^6/uL (4.0-5.20); Red Cell Distribution Width 15.6 % (11.8-14.3); White Blood Cell 6.8 10^3/uL (4.4-10.8)
[2021-01-26] MEDS: ALBUTEROL SULF 2.5 MG/0.5ML(0.5%) NEB SOLN NEB PRN ×3 (06:19→22:52)
[2021-01-26] MEDS: ACETYLCYSTEINE 10 %(100MG/ML) SOL 4ML NEB SCH ×4 (06:19→22:52)
[2021-01-26 06:39] LABS: Calcium 8.7 mg/dL (8.5-10.1); Magnesium 2.2 mg/dL (1.6-2.6)
[2021-01-26 06:42] LABS: BUN/Creatinine Ratio 30.9; INR 1.1 (0.9-1.15); Phosphorus 3.5 mg/dL (2.5-4.90)
[2021-01-26 09:00] VITALS: BP 120/63
[2021-01-26] MEDS: levoFLOXacin 500MG 100 ML IV SCH (10:38)
[2021-01-26] MEDS: PREGABALIN 25 MG CAP PO SCH ×2 (10:39→21:11)
[2021-01-26 13:00] VITALS: BP 125/67
[2021-01-26] MEDS ORDERED: LIDOCAINE 2%HCL (LOCAL ANESTH.) INJ 20ML MDV ONE (14:05)
[2021-01-26] MEDS ORDERED: fentaNYL CITRATE 100 MCG/2 ML VL ONE (14:41)
[2021-01-26] MEDS ORDERED: MIDAZOLAM HCL 2MG/2ML 2ml VIAL (1mg/ml) ONE (14:41)
[2021-01-26 16:44] VITALS: BP 122/77
[2021-01-26] MEDS: ATORVASTATIN 20 MG TAB PO SCH (21:10)
[2021-01-26 22:00] VITALS: BP 116/63
[2021-01-26 22:54] VITALS: BP 116/63
[2021-01-26] MEDS: diazePAM 5 MG TAB PO SCH (23:34)
[2021-01-27] MEDS: AMPICILLIN & SULBACTAM SODIUM 3 GM in SODIUM CHL 0.9% 100 ML IV SCH ×3 (04:51→18:00)
[2021-01-27 05:00] VITALS: BP 97/59
[2021-01-27] MEDS: ACETYLCYSTEINE 10 %(100MG/ML) SOL 4ML NEB SCH ×2 (07:20→14:28)
[2021-01-27] MEDS: ALBUTEROL SULF 2.5 MG/0.5ML(0.5%) NEB SOLN NEB PRN (07:20)
[2021-01-27 09:00] VITALS: BP 112/56
[2021-01-27] MEDS: levoFLOXacin 500MG 100 ML IV SCH (09:29)
[2021-01-27] MEDS: PREGABALIN 25 MG CAP PO SCH (09:29)
[2021-01-27 13:00] VITALS: BP 111/63
[2021-01-27 17:01] VITALS: BP 121/67
[2021-01-27 17:59] VITALS: BP 88/40
[2021-01-31] MEDS ORDERED: PREGABALIN CAPSULE 75 MG CAP PO SCH (22:00)
== END 2021-01-27 19:40 | disposition home or self-care (01) | DRG 871 ==
LOC: EDBD 09:25 → ER 09:25 → TELE 13:06 → TELE-WESTW 01-20 18:15
PROVIDERS: ADMIT Nurse Practitioner Acute Care; ATTEND Internal Medicine
PROC: 05H933Z Insertion of Infusion Device into Right Brachial Vein, Percutaneous Approach (ICD-10-PCS; 2021-01-19)
PROC: B54MZZA Ultrasonography of Right Upper Extremity Veins, Guidance (ICD-10-PCS; 2021-01-19)
PROC: 06H03DZ Insertion of Intraluminal Device into Inferior Vena Cava, Percutaneous Approach (ICD-10-PCS; principal; 2021-01-26)
DX: A41.9 Sepsis, unspecified organism (principal); R65.21 Severe sepsis with septic shock; I21.A1 Myocardial infarction type 2; J81.0 Acute pulmonary edema; N17.0 Acute kidney failure with tubular necrosis; I50.33 Acute on chronic diastolic (congestive) heart failure; E44.0 Moderate protein-calorie malnutrition; L03.115 Cellulitis of right lower limb; L03.116 Cellulitis of left lower limb; I82.401 Acute embolism and thrombosis of unspecified deep veins of right lower extremity; I13.0 Hypertensive heart and chronic kidney disease with heart failure and stage 1 through stage 4 chronic kidney disease, or unspecified chronic kidney disease; J44.9 Chronic obstructive pulmonary disease, unspecified; N18.31 Chronic kidney disease, stage 3a; R01.1 Cardiac murmur, unspecified; L97.519 Non-pressure chronic ulcer of other part of right foot with unspecified severity; I87.2 Venous insufficiency (chronic) (peripheral); E66.9 Obesity, unspecified; E03.9 Hypothyroidism, unspecified; E11.22 Type 2 diabetes mellitus with diabetic chronic kidney disease; E11.621 Type 2 diabetes mellitus with foot ulcer; E78.5 Hyperlipidemia, unspecified; F41.9 Anxiety disorder, unspecified; E11.40 Type 2 diabetes mellitus with diabetic neuropathy, unspecified; Z96.659 Presence of unspecified artificial knee joint; Z20.822 Contact with and (suspected) exposure to COVID-19; L89.619 Pressure ulcer of right heel, unspecified stage; Z79.899 Other long term (current) drug therapy; Z82.49 Family history of ischemic heart disease and other diseases of the circulatory system; Z88.8 Allergy status to other drugs, medicaments and biological substances; Z88.2 Allergy status to sulfonamides; Z68.27 Body mass index [BMI] 27.0-27.9, adult; Z86.711 Personal history of pulmonary embolism; Z87.891 Personal history of nicotine dependence; Z99.81 Dependence on supplemental oxygen
CPT/HCPCS: 36415; 51702; 71045; 71275; 76942; 80048; 80053; 81001; 83735; 83880; 84100; 84443; 84484; 85025; 85610; 85730; 86141; 86850; 86900; 86901; 87040; 87077; 87186; 87205; 87426; 93005; 93306; 93925; 93970; 93971; 94640; 96365; 96367; 96368; 96372; 97110; 97116; 97163; 97530; 99152; 99291; G0378; J1956; J2250; J2543; J3490; Q9967

== ENCOUNTER 2021-03-12 12:32 | Inpatient (IN) | payer OTHER ==
[~2021-03-12] VITALS: Ht 162.6 cm; Wt 76.5 kg
[~2021-03-12 12:32] MED LIST changes: -CLIN150C8 PO; -LEVO250T69 PO
[2021-03-12] MEDS ORDERED: methylPREDNISolone SOD SUCC 125 MG/2 ML VL IV ONE (12:45)
[2021-03-12] MEDS ORDERED: ACETAMINOPHEN 325 MG TAB PO ONE (12:45)
[2021-03-12 13:48] LABS: Basophils # (auto) 0 10 ^3/uL (0-0.2); Basophils % (auto) 0.5 % (0.0-2.0); Eosinophils # (auto) 0.4 10 ^3/uL (0-0.8); Eosinophils % (auto) 10.4 % (0.0-7.0); Hematocrit 38.4 % (36.0-46.0); Hemoglobin 12.4 g/dL (12.2-16.2); Lymphocytes # (auto) 1.5 10 ^3/uL (0.4-5.4); Lymphocytes % (auto) 35.8 % (10.0-50.0); Mean Corpuscular Hemoglobin 28.9 pg (28.0-32.0); Mean Corpuscular Hgb Conc. 32.4 g/dL (32.0-36.0); Mean Corpuscular Volume 89.4 fL (80.0-100.0); Monocytes # (auto) 0.3 10 ^3/uL (0-1.3); Monocytes % (auto) 8.3 % (0.0-12.0); Neutrophils # (auto) 1.9 10 ^3/uL (1.6-8.6); Nucleated Red Blood Cells % 0.4 %; Red Blood Cells 4.29 10^6/uL (4.0-5.20); White Blood Cell 4.2 10^3/uL (4.4-10.8)
[2021-03-12 14:27] LABS: Albumin 2.5 g/dL (3.4-5.0); Calcium 8.3 mg/dL (8.5-10.1); Magnesium 2.3 mg/dL (1.6-2.6); Potassium 4.5 mmol/L (3.5-5.1)
[2021-03-12] MEDS ORDERED: cefTRIAXone 1GM/50ML D5W 50 ML IV ONE (14:30)
[2021-03-12] MEDS ORDERED: AZITHROMYCIN 500MG/ 250ML 250 ML IV ONE (14:30)
[2021-03-12 14:37] LABS: Bilirubin, Total 0.1 mg/dL (0.2-1.0); CRP High Sensitivity 3.73 mg/dL (< 0.3)
[2021-03-12 14:44] LABS: Urine Bacteria NONE SEEN /hpf (None Seen); Urine Blood Negative /uL (Negative); Urine Specific Gravity 1.017 (1.001-1.035); Urine WBC 38 /hpf (0 - 5)
[2021-03-12] MEDS ORDERED: NITROGLYCERIN 0.4 MG SL TAB SL PRN ×2 (15:00→18:00)
[2021-03-12] MEDS ORDERED: MORPHINE SULFATE INJECTION 2 MG/ML SYRG IV PRN ×3 (15:00→18:00)
[2021-03-12 15:19] LABS: BUN/Creatinine Ratio 28.4
[2021-03-12] MEDS ORDERED: ACETAMINOPHEN 500 MG TAB PO PRN (17:45)
[2021-03-12] MEDS ORDERED: REMDESIVIR PER PHARMACY 0 ML IV SCH (17:45)
[2021-03-12] MEDS ORDERED: ONDANSETRON HCL 4 MG/2 ML VIAL IV PRN (18:00)
[2021-03-12] MEDS ORDERED: SODIUM CHLORIDE 0.9% 1,000 ML IV SCH (18:00)
[2021-03-12] MEDS ORDERED: ACETAMINOPHEN 325 MG TAB PO PRN (18:00)
[2021-03-12] MEDS ORDERED: ALUM & MAG HYDROX-SIMETH LIQ(MAALOX) 30 ML PO PRN (18:00)
[2021-03-12] MEDS ORDERED: FUROSEMIDE 40 MG/4 ML VIAL IV ONE (18:00)
[2021-03-12] MEDS ORDERED: DOCUSATE SOD 100 MG CAP PO PRN (18:00)
[2021-03-12] MEDS ORDERED: LORazepam 0.5 MG TAB PO PRN (18:00)
[2021-03-12] MEDS ORDERED: guaiFENesin-DM 100/10mg/5ml SYR PO ONE (18:00)
[2021-03-12] MEDS ORDERED: AZTREONAM 1GM INJ 1 GM in D5W 5% 50 ML IV ONE ×2 (18:45→21:00)
[2021-03-12 18:57] LABS: Alcohol, Urine < 3.0 mg/dL (0-10); Amphetamine Screen, Urine NEGATIVE (NEGATIVE); Barbiturate Scree,Urine NEGATIVE (NEGATIVE); Benzodiazephine Screen, Urine POSITIVE (NEGATIVE); Cannabinoid Screen, Urine NEGATIVE (NEGATIVE); Cocaine Screen, Urine NEGATIVE (NEGATIVE); Opiate Scree,Urine NEGATIVE (NEGATIVE)
[2021-03-12 19:15] LABS: Phencyclidine Screen, Urine NEGATIVE (NEGATIVE)
[2021-03-12] MEDS ORDERED: REMDESIVIR 200 MG in NS 210ml LOADING DOSE ADULT IV ONE (20:00)
[2021-03-12] MEDS: BUDESONIDE (INHALATION) 180 MCG IH IN SCH (20:20)
[2021-03-12] MEDS: ALBUTEROL SULF HFA 90MCG INH 200DOSE IN PRN (20:20)
[2021-03-12 22:00] VITALS: BP 106/68
[2021-03-12] MEDS: ENOXAPARIN SOD 40 MG/0.4 ML SYRINGE SC SCH (22:28)
[2021-03-12] MEDS: DOXYCYCLINE 100MG/250ML 250 ML IV SCH (22:28)
[2021-03-12 23:59] LABS: Phosphorus 3.4 mg/dL (2.5-4.90)
[2021-03-13] MEDS ORDERED: guaiFENesin-DM 100/10mg/5ml SYR PO PRN (02:00)
[2021-03-13] MEDS ORDERED: FLUT50SP NAS (03:32)
[2021-03-13] MEDS ORDERED: PREG200C59 PO (03:32)
[2021-03-13 05:00] VITALS: BP 105/60
[2021-03-13] MEDS: AZTREONAM 1GM INJ 1 GM in D5W 5% 50 ML IV SCH ×3 (05:37→21:24)
[2021-03-13] MEDS ORDERED: FUROSEMIDE 20 MG/2 ML VIAL IV SCH (06:00)
[2021-03-13 06:28] LABS: Basophils # (auto) 0 10 ^3/uL (0-0.2); Basophils % (auto) 0.1 % (0.0-2.0); Eosinophils # (auto) 0 10 ^3/uL (0-0.8); Hematocrit 36.5 % (36.0-46.0); Lymphocytes # (auto) 0.8 10 ^3/uL (0.4-5.4); Lymphocytes % (auto) 23.9 % (10.0-50.0); Mean Corpuscular Hemoglobin 29.5 pg (28.0-32.0); Mean Corpuscular Volume 89.2 fL (80.0-100.0); Monocytes # (auto) 0.2 10 ^3/uL (0-1.3); Monocytes % (auto) 5.4 % (0.0-12.0); Neutrophils # (auto) 2.4 10 ^3/uL (1.6-8.6); Neutrophils % (auto) 70.6 % (37.0-80.0); Nucleated Red Blood Cells % 0.2 %; Red Blood Cells 4.09 10^6/uL (4.0-5.20); Red Cell Distribution Width 15.9 % (11.8-14.3); White Blood Cell 3.4 10^3/uL (4.4-10.8)
[2021-03-13] MEDS: BUDESONIDE (INHALATION) 180 MCG IH IN SCH ×2 (06:36→20:43)
[2021-03-13] MEDS: ALBUTEROL SULF HFA 90MCG INH 200DOSE IN PRN ×2 (06:37→20:44)
[2021-03-13 06:52] LABS: Albumin 2.1 g/dL (3.4-5.0); Calcium 8.2 mg/dL (8.5-10.1); Potassium 4.3 mmol/L (3.5-5.1)
[2021-03-13 06:54] LABS: INR 1.06 (0.9-1.15); Partial Thromboplastin Time 37.1 sec (23.6-33.0)
[2021-03-13 06:55] LABS: Bilirubin, Total 0.1 mg/dL (0.2-1.0); Total Protein 6.6 g/dL (6.4-8.2)
[2021-03-13 08:00] VITALS: BP 99/53
[2021-03-13 08:20] VITALS: BP 109/59
[2021-03-13] MEDS: ENOXAPARIN SOD 40 MG/0.4 ML SYRINGE SC SCH ×2 (09:48→21:25)
[2021-03-13] MEDS: DexAMETHasone SOD PHOS 10MG/1ML VIAL INJ IV SCH (09:48)
[2021-03-13] MEDS: DOXYCYCLINE 100MG/250ML 250 ML IV SCH ×2 (09:48→22:00)
[2021-03-13] MEDS: IVERMECTIN 3 MG TAB PO SCH (09:49)
[2021-03-13] MEDS: ZINC SULFATE 220mg CAP or TAB PO SCH (09:49)
[2021-03-13] MEDS: ASPirin 81 mg TAB PO SCH (09:49)
[2021-03-13] MEDS: CHOLECALCIFEROL (VITD3) 2,000 UNIT CAP/TAB PO SCH (09:49)
[2021-03-13] MEDS: ASCORBIC ACID 1,000 MG TAB PO SCH (09:50)
[2021-03-13 12:59] VITALS: BP 114/67
[2021-03-13] MEDS: HYDROcodone-ACET 5/325MG TAB PO PRN (13:46)
[2021-03-13] MEDS: REMDESIVIR 100mg 100 MG in SODIUM CHL 0.9% 230 ML IV SCH (15:30)
[2021-03-13 17:14] VITALS: BP 122/73
[2021-03-13 22:00] VITALS: BP 114/65
[2021-03-14] MEDS: HYDROcodone-ACET 5/325MG TAB PO PRN ×2 (03:13→21:35)
[2021-03-14 05:00] VITALS: BP 106/60
[2021-03-14] MEDS: AZTREONAM 1GM INJ 1 GM in D5W 5% 50 ML IV SCH ×3 (05:25→21:35)
[2021-03-14 05:58] LABS: Potassium 4.5 mmol/L (3.5-5.1)
[2021-03-14 06:02] LABS: Bilirubin, Total 0.1 mg/dL (0.2-1.0); Total Protein 6.2 g/dL (6.4-8.2)
[2021-03-14] MEDS: ALBUTEROL SULF HFA 90MCG INH 200DOSE IN PRN ×2 (07:46→21:38)
[2021-03-14] MEDS: BUDESONIDE (INHALATION) 180 MCG IH IN SCH ×2 (07:46→21:37)
[2021-03-14 09:00] VITALS: BP 105/54
[2021-03-14] MEDS: DOXYCYCLINE 100MG/250ML 250 ML IV SCH ×2 (10:03→22:15)
[2021-03-14] MEDS: DexAMETHasone SOD PHOS 10MG/1ML VIAL INJ IV SCH (10:03)
[2021-03-14] MEDS: IVERMECTIN 3 MG TAB PO SCH (10:04)
[2021-03-14] MEDS: ASPirin 81 mg TAB PO SCH (10:04)
[2021-03-14] MEDS: CHOLECALCIFEROL (VITD3) 2,000 UNIT CAP/TAB PO SCH (10:04)
[2021-03-14] MEDS: ZINC SULFATE 220mg CAP or TAB PO SCH (10:04)
[2021-03-14] MEDS: ENOXAPARIN SOD 40 MG/0.4 ML SYRINGE SC SCH ×2 (10:04→21:34)
[2021-03-14] MEDS: ASCORBIC ACID 1,000 MG TAB PO SCH (10:04)
[2021-03-14 13:00] VITALS: BP 106/56
[2021-03-14] MEDS: REMDESIVIR 100mg 100 MG in SODIUM CHL 0.9% 230 ML IV SCH (15:43)
[2021-03-14 16:44] VITALS: BP 114/65
[2021-03-14 22:06] VITALS: BP 115/69
[2021-03-15 05:01] VITALS: BP 119/73
[2021-03-15] MEDS: AZTREONAM 1GM INJ 1 GM in D5W 5% 50 ML IV SCH ×3 (05:32→20:44)
[2021-03-15 06:33] LABS: Albumin 2.1 g/dL (3.4-5.0); Calcium 8.3 mg/dL (8.5-10.1); Potassium 4.6 mmol/L (3.5-5.1)
[2021-03-15] MEDS: ALBUTEROL SULF HFA 90MCG INH 200DOSE IN PRN ×2 (06:35→20:43)
[2021-03-15] MEDS: BUDESONIDE (INHALATION) 180 MCG IH IN SCH ×2 (06:35→20:42)
[2021-03-15 06:46] LABS: Bilirubin, Total 0.2 mg/dL (0.2-1.0); Total Protein 6.3 g/dL (6.4-8.2)
[2021-03-15 08:00] VITALS: BP 115/66
[2021-03-15] MEDS: DexAMETHasone SOD PHOS 10MG/1ML VIAL INJ IV SCH (09:52)
[2021-03-15] MEDS: DOXYCYCLINE 100MG/250ML 250 ML IV SCH ×2 (09:52→21:03)
[2021-03-15] MEDS: ASPirin 81 mg TAB PO SCH (09:53)
[2021-03-15] MEDS: ASCORBIC ACID 1,000 MG TAB PO SCH (09:53)
[2021-03-15] MEDS: ZINC SULFATE 220mg CAP or TAB PO SCH (09:53)
[2021-03-15] MEDS: IVERMECTIN 3 MG TAB PO SCH (09:53)
[2021-03-15] MEDS: ENOXAPARIN SOD 40 MG/0.4 ML SYRINGE SC SCH ×2 (09:54→21:03)
[2021-03-15] MEDS: HYDROcodone-ACET 5/325MG TAB PO PRN ×2 (09:54→21:06)
[2021-03-15] MEDS: CHOLECALCIFEROL (VITD3) 2,000 UNIT CAP/TAB PO SCH (09:54)
[2021-03-15] MEDS ORDERED: FUROSEMIDE 20 MG/2 ML VIAL IV ONE (11:45)
[2021-03-15 12:00] VITALS: BP 119/70
[2021-03-15] MEDS: REMDESIVIR 100mg 100 MG in SODIUM CHL 0.9% 230 ML IV SCH (15:36)
[2021-03-15 16:00] VITALS: BP 116/56
[2021-03-15 22:00] VITALS: BP 125/74
[2021-03-16 05:00] VITALS: BP 121/59
[2021-03-16] MEDS: AZTREONAM 1GM INJ 1 GM in D5W 5% 50 ML IV SCH ×3 (05:46→21:38)
[2021-03-16 06:06] LABS: Basophils # (auto) 0 10 ^3/uL (0-0.2); Basophils % (auto) 0.1 % (0.0-2.0); Eosinophils # (auto) 0 10 ^3/uL (0-0.8); Hematocrit 38.4 % (36.0-46.0); Hemoglobin 12.5 g/dL (12.2-16.2); Lymphocytes # (auto) 1.3 10 ^3/uL (0.4-5.4); Lymphocytes % (auto) 21.3 % (10.0-50.0); Mean Corpuscular Hemoglobin 28.9 pg (28.0-32.0); Mean Corpuscular Hgb Conc. 32.6 g/dL (32.0-36.0); Mean Corpuscular Volume 88.8 fL (80.0-100.0); Monocytes # (auto) 0.5 10 ^3/uL (0-1.3); Monocytes % (auto) 8.5 % (0.0-12.0); Neutrophils # (auto) 4.2 10 ^3/uL (1.6-8.6); Neutrophils % (auto) 70.1 % (37.0-80.0); Nucleated Red Blood Cells % 0.1 %; Red Blood Cells 4.32 10^6/uL (4.0-5.20); Red Cell Distribution Width 15.9 % (11.8-14.3); White Blood Cell 5.9 10^3/uL (4.4-10.8)
[2021-03-16] MEDS: ALBUTEROL SULF HFA 90MCG INH 200DOSE IN PRN ×2 (06:16→22:05)
[2021-03-16] MEDS: BUDESONIDE (INHALATION) 180 MCG IH IN SCH ×2 (06:16→22:05)
[2021-03-16 06:26] LABS: Potassium 4.5 mmol/L (3.5-5.1)
[2021-03-16 06:39] LABS: BUN/Creatinine Ratio 60.3; Bilirubin, Total 0.2 mg/dL (0.2-1.0); CRP High Sensitivity 1.69 mg/dL (< 0.3); Calcium 8.4 mg/dL (8.5-10.1); Total Protein 6.3 g/dL (6.4-8.2)
[2021-03-16 09:00] VITALS: BP 125/66
[2021-03-16] MEDS: DexAMETHasone SOD PHOS 10MG/1ML VIAL INJ IV SCH (09:54)
[2021-03-16] MEDS: ASPirin 81 mg TAB PO SCH (09:55)
[2021-03-16] MEDS: DOXYCYCLINE 100MG/250ML 250 ML IV SCH ×2 (09:55→22:40)
[2021-03-16] MEDS: FUROSEMIDE 20 MG/2 ML VIAL IV SCH (09:55)
[2021-03-16] MEDS: IVERMECTIN 3 MG TAB PO SCH (09:56)
[2021-03-16] MEDS: ZINC SULFATE 220mg CAP or TAB PO SCH (09:56)
[2021-03-16] MEDS: CHOLECALCIFEROL (VITD3) 2,000 UNIT CAP/TAB PO SCH (09:57)
[2021-03-16] MEDS: ASCORBIC ACID 1,000 MG TAB PO SCH (09:57)
[2021-03-16] MEDS: ENOXAPARIN SOD 40 MG/0.4 ML SYRINGE SC SCH ×2 (09:58→21:38)
[2021-03-16 13:00] VITALS: BP 112/71
[2021-03-16] MEDS: REMDESIVIR 100mg 100 MG in SODIUM CHL 0.9% 230 ML IV SCH (15:52)
[2021-03-16 17:00] VITALS: BP 131/69
[2021-03-16 22:00] VITALS: BP 116/65
[2021-03-16] MEDS: HYDROcodone-ACET 5/325MG TAB PO PRN (22:04)
[2021-03-17 01:25] VITALS: BP 116/65
[2021-03-17 05:00] VITALS: BP 119/69
[2021-03-17] MEDS: AZTREONAM 1GM INJ 1 GM in D5W 5% 50 ML IV SCH ×2 (06:00→14:00)
[2021-03-17 09:00] VITALS: BP 121/73
[2021-03-17] MEDS: ENOXAPARIN SOD 40 MG/0.4 ML SYRINGE SC SCH (10:17)
[2021-03-17] MEDS: FUROSEMIDE 20 MG/2 ML VIAL IV SCH (10:18)
[2021-03-17] MEDS: DexAMETHasone SOD PHOS 10MG/1ML VIAL INJ IV SCH (10:18)
[2021-03-17] MEDS: ASCORBIC ACID 1,000 MG TAB PO SCH (10:19)
[2021-03-17] MEDS: CHOLECALCIFEROL (VITD3) 2,000 UNIT CAP/TAB PO SCH (10:21)
[2021-03-17] MEDS: ZINC SULFATE 220mg CAP or TAB PO SCH (10:22)
[2021-03-17] MEDS: ASPirin 81 mg TAB PO SCH (10:22)
[2021-03-17] MEDS: IVERMECTIN 3 MG TAB PO SCH (10:22)
[2021-03-17] MEDS: DOXYCYCLINE 100MG/250ML 250 ML IV SCH (10:23)
[2021-03-17 13:00] VITALS: BP 129/72
[2021-03-17 17:00] VITALS: BP 124/71
== END 2021-03-17 19:15 | disposition home or self-care (01) | DRG 177 ==
LOC: ER 12:32 → EDBD 12:32 → TELE 14:50 → TELE-EAST 17:04
PROVIDERS: ADMIT Hospitalist; ATTEND Internal Medicine
PROC: XW033E5 Introduction of Remdesivir Anti-infective into Peripheral Vein, Percutaneous Approach, New Technology Group 5 (ICD-10-PCS; principal; 2021-03-12)
DX: U07.1 COVID-19 (principal); E43 Unspecified severe protein-calorie malnutrition; J12.82 Pneumonia due to coronavirus disease 2019; J96.21 Acute and chronic respiratory failure with hypoxia; L03.115 Cellulitis of right lower limb; L03.116 Cellulitis of left lower limb; J44.1 Chronic obstructive pulmonary disease with (acute) exacerbation; J44.0 Chronic obstructive pulmonary disease with (acute) lower respiratory infection; N30.01 Acute cystitis with hematuria; I50.82 Biventricular heart failure; E86.0 Dehydration; E03.9 Hypothyroidism, unspecified; F17.200 Nicotine dependence, unspecified, uncomplicated; F41.9 Anxiety disorder, unspecified; H91.90 Unspecified hearing loss, unspecified ear; I11.0 Hypertensive heart disease with heart failure; F32.A Depression, unspecified; K21.9 Gastro-esophageal reflux disease without esophagitis; G62.9 Polyneuropathy, unspecified; M19.90 Unspecified osteoarthritis, unspecified site; Z88.1 Allergy status to other antibiotic agents; Z88.2 Allergy status to sulfonamides; Z88.5 Allergy status to narcotic agent; Z68.29 Body mass index [BMI] 29.0-29.9, adult; Z79.899 Other long term (current) drug therapy; Z95.828 Presence of other vascular implants and grafts; Z86.718 Personal history of other venous thrombosis and embolism
CPT/HCPCS: 36415; 36600; 71045; 80053; 80307; 81001; 82306; 82728; 82805; 83036; 83605; 83615; 83735; 83880; 84100; 84443; 84484; 85025; 85379; 85610; 85730; 86141; 87040; 87070; 87077; 87081; 87086; 87186; 87205; 87426; 93005; 94640; 96365; 96368; 96375; 97110; 97116; 97163; 97530; G0378; J0696; J1100; J3490; J7060

== ENCOUNTER 2021-03-19 11:32 | Inpatient (IN) | payer OTHER ==
[~2021-03-19] VITALS: Ht 170.2 cm; Wt 75.6 kg
[~2021-03-19 11:32] MED LIST changes: +FLUT50SP NAS; -PREG100C PO; +PREG200C59 PO
[2021-03-19 12:53] LABS: Basophils # (auto) 0 10 ^3/uL (0-0.2); Basophils % (auto) 0.2 % (0.0-2.0); Eosinophils # (auto) 0.1 10 ^3/uL (0-0.8); Eosinophils % (auto) 0.6 % (0.0-7.0); Hematocrit 37.7 % (36.0-46.0); Hemoglobin 12.3 g/dL (12.2-16.2); Lymphocytes # (auto) 1.4 10 ^3/uL (0.4-5.4); Lymphocytes % (auto) 15.8 % (10.0-50.0); Mean Corpuscular Hemoglobin 28.8 pg (28.0-32.0); Mean Corpuscular Hgb Conc. 32.5 g/dL (32.0-36.0); Mean Corpuscular Volume 88.5 fL (80.0-100.0); Monocytes # (auto) 0.7 10 ^3/uL (0-1.3); Monocytes % (auto) 8.2 % (0.0-12.0); Neutrophils # (auto) 6.5 10 ^3/uL (1.6-8.6); Neutrophils % (auto) 75.2 % (37.0-80.0); Nucleated Red Blood Cells % 0.1 %; Red Blood Cells 4.26 10^6/uL (4.0-5.20); Red Cell Distribution Width 15.9 % (11.8-14.3); White Blood Cell 8.6 10^3/uL (4.4-10.8)
[2021-03-19 13:12] LABS: Albumin 2.4 g/dL (3.4-5.0); BUN/Creatinine Ratio 59.1; Calcium 9.4 mg/dL (8.5-10.1)
[2021-03-19 13:20] LABS: Bilirubin, Total 0.5 mg/dL (0.2-1.0); CRP High Sensitivity 2.73 mg/dL (< 0.3)
[2021-03-19 14:15] LABS: Potassium 4.6 mmol/L (3.5-5.1)
[2021-03-19] MEDS ORDERED: NITROGLYCERIN 0.4 MG SL TAB SL PRN (16:15)
[2021-03-19] MEDS ORDERED: MORPHINE SULFATE INJECTION 2 MG/ML SYRG IV PRN (16:15)
[2021-03-19 20:10] VITALS: BP 127/55
[2021-03-19 22:00] VITALS: BP 127/55
[2021-03-20] MEDS ORDERED: PANTOPRAZOLE 40 MG/10 ML VIAL INJ IV ONE (02:00)
[2021-03-20] MEDS ORDERED: SUCRALFATE 1 GM/10 ML ORAL SUSP PO ONE (02:00)
[2021-03-20] MEDS ORDERED: IPRATROPIUM BROM 0.5 MG/2.5ML INH SOL NEB SCH (02:00)
[2021-03-20] MEDS ORDERED: ONDANSETRON HCL 4 MG/2 ML VIAL IV PRN (02:15)
[2021-03-20] MEDS ORDERED: ALUM & MAG HYDROX-SIMETH LIQ(MAALOX) 30 ML PO PRN (02:15)
[2021-03-20] MEDS ORDERED: NITROGLYCERIN 0.4 MG SL TAB SL PRN (02:15)
[2021-03-20] MEDS ORDERED: ACETAMINOPHEN 325 MG TAB PO PRN (02:15)
[2021-03-20] MEDS ORDERED: HYDROcodone-ACET 5/325MG TAB PO PRN (02:15)
[2021-03-20] MEDS ORDERED: MORPHINE SULFATE INJECTION 2 MG/ML SYRG IV PRN ×2 (02:15)
[2021-03-20] MEDS ORDERED: TEMAZEPAM 15 MG CAP PO PRN (02:15)
[2021-03-20] MEDS ORDERED: DOCUSATE SOD 100 MG CAP PO PRN (02:15)
[2021-03-20] MEDS ORDERED: IPRATROPIUM BROM 0.5 MG/2.5ML INH SOL NEB PRN (02:45)
[2021-03-20 02:57] LABS: Cholesterol 110 mg/dL (< 200); Triglycerides 49 mg/dL (< 150)
[2021-03-20 03:00] LABS: HDL Cholesterol 40 mg/dL (40-59); LDL Cholesterol 65 mg/dL (< 100)
[2021-03-20 04:15] VITALS: BP 127/55
[2021-03-20 05:30] VITALS: BP 104/56
[2021-03-20] MEDS: SODIUM CHLOR 0.9% PF (SALINE LOCK) 10ML VIAL/SYR IV SCH ×3 (05:35→21:52)
[2021-03-20] MEDS: SUCRALFATE 1 GM/10 ML ORAL SUSP PO SCH ×4 (05:36→21:53)
[2021-03-20 09:00] VITALS: BP 108/55
[2021-03-20] MEDS: PANTOPRAZOLE 40 MG/10 ML VIAL INJ IV SCH ×2 (10:36→21:51)
[2021-03-20 11:58] LABS: Urine Bacteria NONE SEEN /hpf (None Seen); Urine Blood 2+ /uL (Negative); Urine Mucus FEW (None Seen); Urine Specific Gravity 1.024 (1.001-1.035); Urine WBC 27 /hpf (0 - 5)
[2021-03-20] MEDS ORDERED: ALPRAZolam 0.25 MG TAB PO PRN (12:00)
[2021-03-20 12:01] LABS: Alcohol, Urine < 3.0 mg/dL (0-10); Amphetamine Screen, Urine NEGATIVE (NEGATIVE); Barbiturate Scree,Urine NEGATIVE (NEGATIVE); Benzodiazephine Screen, Urine POSITIVE (NEGATIVE); Cannabinoid Screen, Urine NEGATIVE (NEGATIVE); Cocaine Screen, Urine NEGATIVE (NEGATIVE); Phencyclidine Screen, Urine NEGATIVE (NEGATIVE)
[2021-03-20 12:09] LABS: Opiate Scree,Urine POSITIVE (NEGATIVE)
[2021-03-20 13:00] VITALS: BP 100/51
[2021-03-20] MEDS ORDERED: levoFLOXacin 250MG 50 ML IV ONE (13:30)
[2021-03-20 17:00] VITALS: BP 102/58
[2021-03-20 17:33] LABS: Basophils # (auto) 0 10 ^3/uL (0-0.2); Basophils % (auto) 0.4 % (0.0-2.0); Eosinophils # (auto) 0.5 10 ^3/uL (0-0.8); Eosinophils % (auto) 7.8 % (0.0-7.0); Hematocrit 31.5 % (36.0-46.0); Hemoglobin 10.5 g/dL (12.2-16.2); Lymphocytes # (auto) 1.5 10 ^3/uL (0.4-5.4); Lymphocytes % (auto) 25.1 % (10.0-50.0); Mean Corpuscular Hemoglobin 29.5 pg (28.0-32.0); Mean Corpuscular Hgb Conc. 33.3 g/dL (32.0-36.0); Mean Corpuscular Volume 88.6 fL (80.0-100.0); Monocytes # (auto) 0.5 10 ^3/uL (0-1.3); Monocytes % (auto) 8.6 % (0.0-12.0); Neutrophils # (auto) 3.5 10 ^3/uL (1.6-8.6); Neutrophils % (auto) 58.1 % (37.0-80.0); Nucleated Red Blood Cells % 0.1 %; Red Blood Cells 3.56 10^6/uL (4.0-5.20); Red Cell Distribution Width 15.4 % (11.8-14.3); White Blood Cell 6.1 10^3/uL (4.4-10.8)
[2021-03-20] MEDS: MUPIROCIN 2% OINT 15gm or 22gm EACHNOSTRI SCH (21:51)
[2021-03-20] MEDS: MORPHINE SULFATE INJECTION 2 MG/ML SYRG IV PRN (21:54)
[2021-03-20 22:00] VITALS: BP 103/75
[2021-03-21 05:00] VITALS: BP 110/59
[2021-03-21 06:02] LABS: Calcium 8.6 mg/dL (8.5-10.1); Magnesium 2.4 mg/dL (1.6-2.6); Potassium 4.4 mmol/L (3.5-5.1)
[2021-03-21 06:03] LABS: INR 1.16 (0.9-1.15); Partial Thromboplastin Time 29.9 sec (23.6-33.0)
[2021-03-21 06:06] LABS: BUN/Creatinine Ratio 40.3; Bilirubin, Total 0.7 mg/dL (0.2-1.0); Phosphorus 2.8 mg/dL (2.5-4.90); Total Protein 5.7 g/dL (6.4-8.2)
[2021-03-21] MEDS: SODIUM CHLOR 0.9% PF (SALINE LOCK) 10ML VIAL/SYR IV SCH ×3 (06:17→21:49)
[2021-03-21 06:18] LABS: Basophils # (auto) 0 10 ^3/uL (0-0.2); Basophils % (auto) 0.3 % (0.0-2.0); Eosinophils # (auto) 0.6 10 ^3/uL (0-0.8); Eosinophils % (auto) 8.7 % (0.0-7.0); Hematocrit 31.1 % (36.0-46.0); Hemoglobin 10.2 g/dL (12.2-16.2); Lymphocytes # (auto) 1.3 10 ^3/uL (0.4-5.4); Lymphocytes % (auto) 19.8 % (10.0-50.0); Mean Corpuscular Hgb Conc. 32.7 g/dL (32.0-36.0); Mean Corpuscular Volume 88.9 fL (80.0-100.0); Monocytes # (auto) 0.6 10 ^3/uL (0-1.3); Monocytes % (auto) 9.6 % (0.0-12.0); Neutrophils # (auto) 4.1 10 ^3/uL (1.6-8.6); Neutrophils % (auto) 61.6 % (37.0-80.0); Nucleated Red Blood Cells % 0.1 %; Red Cell Distribution Width 15.6 % (11.8-14.3); White Blood Cell 6.7 10^3/uL (4.4-10.8)
[2021-03-21] MEDS: SUCRALFATE 1 GM/10 ML ORAL SUSP PO SCH ×4 (06:18→21:49)
[2021-03-21 09:59] VITALS: BP 106/56
[2021-03-21] MEDS: MUPIROCIN 2% OINT 15gm or 22gm EACHNOSTRI SCH ×2 (11:40→21:49)
[2021-03-21] MEDS: levoFLOXacin 250MG 50 ML IV SCH (11:40)
[2021-03-21] MEDS: PANTOPRAZOLE 40 MG/10 ML VIAL INJ IV SCH ×2 (11:40→21:49)
[2021-03-21 13:00] VITALS: BP 104/52
[2021-03-21 17:00] VITALS: BP 127/69
[2021-03-21] MEDS: MORPHINE SULFATE INJECTION 2 MG/ML SYRG IV PRN (17:03)
[2021-03-21 22:00] VITALS: BP 125/69
[2021-03-22 05:00] VITALS: BP 109/64
[2021-03-22] MEDS: SODIUM CHLOR 0.9% PF (SALINE LOCK) 10ML VIAL/SYR IV SCH ×2 (06:16→13:22)
[2021-03-22] MEDS: SUCRALFATE 1 GM/10 ML ORAL SUSP PO SCH ×3 (06:17→16:40)
[2021-03-22 06:27] LABS: Basophils # (auto) 0 10 ^3/uL (0-0.2); Basophils % (auto) 0.4 % (0.0-2.0); Eosinophils # (auto) 0.5 10 ^3/uL (0-0.8); Eosinophils % (auto) 6.6 % (0.0-7.0); Hematocrit 32.2 % (36.0-46.0); Hemoglobin 10.8 g/dL (12.2-16.2); Lymphocytes # (auto) 1.5 10 ^3/uL (0.4-5.4); Lymphocytes % (auto) 18.9 % (10.0-50.0); Mean Corpuscular Hemoglobin 29.7 pg (28.0-32.0); Mean Corpuscular Hgb Conc. 33.6 g/dL (32.0-36.0); Mean Corpuscular Volume 88.2 fL (80.0-100.0); Monocytes # (auto) 0.5 10 ^3/uL (0-1.3); Monocytes % (auto) 6.6 % (0.0-12.0); Neutrophils # (auto) 5.5 10 ^3/uL (1.6-8.6); Neutrophils % (auto) 67.5 % (37.0-80.0); Red Blood Cells 3.65 10^6/uL (4.0-5.20); Red Cell Distribution Width 15.3 % (11.8-14.3); White Blood Cell 8.2 10^3/uL (4.4-10.8)
[2021-03-22 06:41] LABS: INR 1.13 (0.9-1.15); Partial Thromboplastin Time 29.3 sec (23.6-33.0)
[2021-03-22 06:57] LABS: Potassium 4.2 mmol/L (3.5-5.1)
[2021-03-22 07:06] LABS: BUN/Creatinine Ratio 43.3; Bilirubin, Total 0.6 mg/dL (0.2-1.0); Calcium 8.6 mg/dL (8.5-10.1); Magnesium 2.3 mg/dL (1.6-2.6); Phosphorus 2.6 mg/dL (2.5-4.90)
[2021-03-22 08:30] VITALS: BP 114/68
[2021-03-22] MEDS: MUPIROCIN 2% OINT 15gm or 22gm EACHNOSTRI SCH (09:06)
[2021-03-22] MEDS: levoFLOXacin 250MG 50 ML IV SCH (09:06)
[2021-03-22] MEDS: PANTOPRAZOLE 40 MG/10 ML VIAL INJ IV SCH (09:07)
[2021-03-22 12:30] VITALS: BP 105/58
[2021-03-22 17:00] VITALS: BP 117/66
== END 2021-03-22 18:30 | disposition home or self-care (01) | DRG 377 ==
LOC: EDUNIT# 11:32 → ER 11:32 → EDBD 11:32 → TELE 16:02 → TELE-WESTW 20:10 → TELE-EAST 03-20 05:15
PROVIDERS: ADMIT Hospitalist; ATTEND Internal Medicine
DX: K57.31 Diverticulosis of large intestine without perforation or abscess with bleeding (principal); E43 Unspecified severe protein-calorie malnutrition; D68.4 Acquired coagulation factor deficiency; J96.10 Chronic respiratory failure, unspecified whether with hypoxia or hypercapnia; E03.9 Hypothyroidism, unspecified; E86.0 Dehydration; G62.9 Polyneuropathy, unspecified; I11.0 Hypertensive heart disease with heart failure; I50.9 Heart failure, unspecified; B97.29 Other coronavirus as the cause of diseases classified elsewhere; Z20.822 Contact with and (suspected) exposure to COVID-19; F41.8 Other specified anxiety disorders; K21.9 Gastro-esophageal reflux disease without esophagitis; J43.9 Emphysema, unspecified; M19.90 Unspecified osteoarthritis, unspecified site; Z82.49 Family history of ischemic heart disease and other diseases of the circulatory system; Z86.711 Personal history of pulmonary embolism; Z87.01 Personal history of pneumonia (recurrent); Z68.24 Body mass index [BMI] 24.0-24.9, adult; Z86.718 Personal history of other venous thrombosis and embolism; Z95.828 Presence of other vascular implants and grafts; Z88.1 Allergy status to other antibiotic agents; Z88.2 Allergy status to sulfonamides; Z88.5 Allergy status to narcotic agent
CPT/HCPCS: 36415; 71045; 74176; 80053; 80061; 80307; 81001; 82150; 82728; 83690; 83735; 83880; 84100; 84484; 85025; 85610; 85730; 86141; 86850; 86900; 86901; 87040; 87081; 87086; 87426; 99291; C9113; G0378; J2405

== ENCOUNTER 2023-04-10 00:35 | Inpatient (IN) | payer OTHER ==
[~2023-04-10] VITALS: Ht 165.1 cm; Wt 93.4 kg
[2023-04-10] VITALS (11 sets, daily range): BP systolic 110–140; BP diastolic 49–67; PULSE 52–88; RESP 16–20; TEMP 97.3–97.9; O2SAT 91–94
[2023-04-10] MEDS ORDERED: NITROGLYCERIN 0.4 MG SL TAB SL PRN (03:15)
[2023-04-10] MEDS ORDERED: ONDANSETRON HCL 4 MG/2 ML VIAL IV PRN (03:15)
[2023-04-10] MEDS ORDERED: ACETAMINOPHEN 325 MG TAB PO PRN (03:15)
[2023-04-10] MEDS ORDERED: ALBUTEROL SULF 2.5 MG/0.5ML(0.5%) NEB SOLN NEB PRN (03:15)
[2023-04-10] MEDS ORDERED: TEMAZEPAM 15 MG CAP PO PRN (03:15)
[2023-04-10] MEDS ORDERED: MORPHINE SULFATE INJ 2 MG/ml SYRG IV PRN (03:15)
[2023-04-10] MEDS ORDERED: IPRATROPIUM BROM 0.5 MG/2.5ML INH SOL NEB PRN (03:15)
[2023-04-10 06:18] LABS: Urine Bacteria NONE SEEN /hpf (None Seen); Urine Blood 3+ /uL (Negative); Urine Clarity HAZY (Clear); Urine Color PINK (Yellow); Urine Mucus FEW (None Seen); Urine Protein, UAD 1+ (Negative); Urine Specific Gravity 1.019 (1.001-1.035); Urine Urobilinogen Normal (Negative); Urine WBC 17 /hpf (0 - 5); Urine pH 5.5 (5.0-8.0)
[2023-04-10 08:04] LABS: Hematocrit 38.9 % (36.0-46.0); Hemoglobin 12.9 g/dL (12.2-16.2); Mean Corpuscular Hemoglobin 31.2 pg (28.0-32.0); Mean Corpuscular Volume 94.6 fL (80.0-100.0); Red Blood Cells 4.12 10^6/uL (4.0-5.20); White Blood Cell 9.2 10^3/uL (4.4-10.8)
[2023-04-10 08:21] LABS: Basophils % (manual) 0 (0.0-2.0); Blast Cells 0; Eosinophils % (manual) 0 (0-7); Metamyelocytes % 0; Myelocytes % 0; Promyelocytes % 0; Reactive Lymphocytes 0
[2023-04-10 08:22] LABS: Alanine Aminotransferase 14 U/L (7-40); Albumin 3.7 g/dL (3.2-4.8); Alkaline Phosphatase 82 U/L (46-116); Anion Gap 5 (5-15); Aspartate Aminotransferase 14 U/L (13-40); BUN/Creatinine Ratio 21.9 (10.0-20.0); Bilirubin, Total 0.4 mg/dL (0.2-1.0); Blood Urea Nitrogen 23 mg/dL (9-23); Calcium 9.1 mg/dL (8.5-10.1); Carbon Dioxide 32 mmol/L (20-30); Chloride 100 mmol/L (98-107); Glucose 226 mg/dL (74-106); Potassium 4.3 mmol/L (3.5-5.1); Sodium 137 mmol/L (136-145); Total Protein 6.1 g/dL (5.7-8.2)
[2023-04-10 08:36] LABS: Band Neutrophils % (manual) 2; Lymphocytes % (manual) 5 (10.0-50.0); Monocytes % (manual) 4 (0-12)
[2023-04-10 08:37] LABS: Platelet Estimate Adequate
[2023-04-10] MEDS: ENOXAPARIN SOD 40 MG/0.4 ML SYRINGE SC SCH (10:04)
[2023-04-10] MEDS ORDERED: FUROSEMIDE 20 MG/2 ML VIAL IV ONE ×2 (11:15→12:45)
[2023-04-10] MEDS ORDERED: POTASSIUM CHL 10 Meq TABLET PO ONE (12:45)
[2023-04-10] MEDS: cefTRIAXone 1GM/50ML D5W 50 ML IV SCH (14:28)
[2023-04-10] MEDS: FUROSEMIDE 20 MG/2 ML VIAL IV SCH (18:28)
[2023-04-10] MEDS ORDERED: diazePAM 5 MG TAB PO ONE (22:00)
[2023-04-10] MEDS ORDERED: PREGABALIN 25 MG CAP PO ONE ×2 (22:00)
[2023-04-10] MEDS ORDERED: PREGABALIN CAPSULE 75 MG CAP PO ONE (22:00)
[2023-04-11 05:00] VITALS: BP 120/59; PULSE 60; RESP 16; TEMP 97.8; O2SAT 97
[2023-04-11] MEDS: FUROSEMIDE 20 MG/2 ML VIAL IV SCH ×2 (06:39→18:00)
[2023-04-11 06:46] LABS: Anion Gap 5 (5-15); Carbon Dioxide 29 mmol/L (20-30); Chloride 102 mmol/L (98-107); Potassium 4.4 mmol/L (3.5-5.1); Sodium 136 mmol/L (136-145)
[2023-04-11 06:48] LABS: Calcium 8.9 mg/dL (8.7-10.4)
[2023-04-11 06:52] LABS: Glucose 84 mg/dL (74-106)
[2023-04-11 06:53] LABS: BUN/Creatinine Ratio 17.8 (10.0-20.0); Blood Urea Nitrogen 16 mg/dL (9-23)
[2023-04-11 07:15] VITALS: O2SAT 93
[2023-04-11 08:00] VITALS: PULSE 75
[2023-04-11] MEDS: cefTRIAXone 1GM/50ML D5W 50 ML IV SCH (08:33)
[2023-04-11] MEDS: ENOXAPARIN SOD 40 MG/0.4 ML SYRINGE SC SCH (08:33)
[2023-04-11 09:00] VITALS: BP 117/80; PULSE 57; RESP 16; TEMP 98; O2SAT 91
[2023-04-11 10:00] LABS: Basophils # (auto) 0 10 ^3/uL (0-0.2); Basophils % (auto) 0.3 % (0.0-2.0); Eosinophils # (auto) 0.2 10 ^3/uL (0-0.8); Eosinophils % (auto) 1.5 % (0.0-7.0); Hematocrit 41.3 % (36.0-46.0); Hemoglobin 13.9 g/dL (12.2-16.2); Lymphocytes # (auto) 1.1 10 ^3/uL (0.4-5.4); Lymphocytes % (auto) 10.8 % (10.0-50.0); Mean Corpuscular Hemoglobin 32.2 pg (28.0-32.0); Mean Corpuscular Hgb Conc. 33.6 g/dL (32.0-36.0); Mean Corpuscular Volume 95.7 fL (80.0-100.0); Monocytes # (auto) 0.6 10 ^3/uL (0-1.3); Monocytes % (auto) 5.8 % (0.0-12.0); Neutrophils # (auto) 8.1 10 ^3/uL (1.6-8.6); Neutrophils % (auto) 81.6 % (37.0-80.0); Red Blood Cells 4.32 10^6/uL (4.0-5.20); Red Cell Distribution Width 14.4 % (11.8-14.3)
[2023-04-11] MEDS ORDERED: PREGABALIN 25 MG CAP PO SCH (10:00)
[2023-04-11 13:00] VITALS: BP 121/73; PULSE 77; RESP 18; TEMP 98.1; O2SAT 93
[2023-04-11] MEDS ORDERED: diazePAM 2 MG TAB PO SCH (22:00)
== END 2023-04-11 18:00 | disposition home or self-care (01) | DRG 189 ==
LOC: TELE 00:35 → UNDOADMIN 00:35 → TELE 00:45 → TELE-WESTW 00:45 → EDUNIT# 03:16
PROVIDERS: ADMIT Internal Medicine
DX: J96.21 Acute and chronic respiratory failure with hypoxia (principal); I50.41 Acute combined systolic (congestive) and diastolic (congestive) heart failure; J44.1 Chronic obstructive pulmonary disease with (acute) exacerbation; N39.0 Urinary tract infection, site not specified; F41.9 Anxiety disorder, unspecified; M79.671 Pain in right foot; Z88.1 Allergy status to other antibiotic agents; Z88.2 Allergy status to sulfonamides; Z88.5 Allergy status to narcotic agent; Z86.718 Personal history of other venous thrombosis and embolism
CPT/HCPCS: 36415; 71045; 73620; 80048; 80053; 81001; 83036; 83880; 84484; 85007; 85027; 93306; 93970; 97110; 97163; G0378; J0696